=== PATIENT | female | born 1980 | race Caucasian/White ===

== ENCOUNTER → 2017-09-22 11:57 | Outpatient (CLI) | payer OTHER, SELFPAY ==
[2017-09-22 12:14] LABS: Basophils % 0.8 % (0.1-2.0); Eosinophils # 0.1 K/mm3 (0.0-0.4); Eosinophils % 2.4 % (0.1-12.0); Hematocrit 39.5 % (37.0-47.0); Hemoglobin 13.5 g/dL (12.2-16.2); Lymphocytes # 1.9 K/mm3 (0.7-4.5); Lymphocytes % 36.2 K/mm3 (10-50); Mean Corpuscular HGB Conc 34.2 g/dL (31.8-35.4); Mean Corpuscular Hemoglobin 31.7 pg (27.0-31.2); Mean Corpuscular Volume 92.7 fl (81-99); Mean Platelet Volume 7.3 fl (7.4-10.4); Monocytes # 0.3 K/mm3 (0.1-1.0); Monocytes % 6.2 % (1.7-9.3); Neutrophils # 2.8 K/mm3 (1.8-7.8); Neutrophils % 54.4 % (37.0-80.0); Platelet Count 252 K/mm3 (142-424); Red Blood Count 4.26 M/mm3 (4.20-5.40); Red Cell Distribution Width 12.2 % (11.5-17.5); White Blood Count 5.2 K/mm3 (4.8-10.8)
[2017-09-22 13:48] LABS: Free T4 (Free Thyroxine) 0.91 ng/dl (0.76-1.46)
== END ==
PROVIDERS: Visit Provider Family Medicine
DX: E03.9 Hypothyroidism, unspecified (principal); Z86.2 Personal history of diseases of the blood and blood-forming organs and certain disorders involving the immune mechanism
CPT/HCPCS: 36415; 84439; 84443; 85025

== ENCOUNTER 2017-10-02 08:57 | Emergency (ER) | payer OTHER, SELFPAY ==
[2017-10-02 09:06] VITALS: BP 132/90; PULSE 76; RESP 18; TEMP 37.1; O2SAT 100; BMI 25.8
--- NOTE | 2017-10-02 09:11 | HMH.EDUTC ---
[facility] [place] Disposition Clinical Impression: URI (upper respiratory infection) Qualifiers: URI type: unspecified URI Qualified Code(s): J06.9 - Acute upper respiratory infection, unspecified Disposition: Home, Self-Care Condition on Discharge: Good Instructions: Sore Throat, DI for Nasal Congestion Additional Instructions: How you get tonsil stones When this happens, the debris can become concentrated in white formations that occur in the pockets. Tonsil stones, or tonsilloliths, are formed when this trapped debris hardens, or calcifies. This tends to happen most often in people who have chronic inflammation in their tonsils or repeated bouts of tonsillitis Gargling vigorously with salt water can ease throat discomfort and may help dislodge tonsil stones. Salt water may also help to change your mouth chemistry. It can also help get rid of the odor tonsil stones can cause. Dissolve 1/2 teaspoon salt in 8 ounces of warm water, and gargle.Jan 30, 2017 * Monitor Temp. Tylenol and/or Ibuprofen as needed. ER if fever is no less than 101 despite alternating Tylenol and Ibuprofen * Encourage fluids, water, Gatorade, powerade, pedialyte if infant/toddler/or child * Warm salt water gargles for throat irritation *Warm fluids *Sore throat lozenges *Sleep elevated *humidifier or vaporizer Lots of rest Increase fluids, water, Gatorade, powerade *Your throat swab was sent to lab for culture. Those results area typically sent to your primary care physician. Be sure to follow up in 2-3 days if no improvement so they can review those results and treat if necessary If you dont have primary care I recommend you get one, but in the mean time you will have to return to a walk in clinic Follow up IMMEDIATELY for new or worsening of symptoms OR no noticeable improvement over the next 48-72 hours. 911 immediately for any life threatening symptoms such as chest pain or difficulty breathing Referrals: Armando Villa MD [Primary Care Provider] - Time of Disposition: 09:29 Medical Decision Making - Medical Records Medical records reviewed: Yes: I reviewed the patient's medical records. Vital Signs: 10/02/17 09:06 Temperature 98.7 F Temperature Source Temporal Artery Scan Pulse Rate [Radial] 76 Respiratory Rate 18 Blood Pressure [Right Arm] 132/90 Blood Pressure Mean [Right Arm] 104 Blood Pressure Source [Right Arm] Automatic Cuff Blood Pressure Position [Right Arm] Sitting 02 Sat by Pulse Oximetry 100 Oxygen Delivery Method Room Air - Lab Data Lab results reviewed: Yes: I reviewed the patient's lab results. Lab Results 10/02/17 09:14: Influenza Type A Ag Negative, Influenza Type B Ag Negative, Strep Scn Rapid Clinic Negative Orders (Tests/Meds): ED MEDICATIONS Generic Name Dose Route Start Last Admin Trade Name Maribell PRN Reason Stop Dose Admin Ceftriaxone Sodium 1 gm 10/02/17 09:26 Rocephin 1gm Vial IM 10/02/17 09:27 ONCE ONE Lidocaine HCl 0 ml 10/02/17 09:26 Lidocaine 1% 10ml Mdv IM 10/02/17 09:27 ONCE ONE Methylprednisolone Sodium Succinate 125 mg 10/02/17 09:26 Solu-Medrol 125mg/2ml Vial IM 10/02/17 09:27 ONCE ONE - Caden Inquiry Pt receiving controlled substance: No Caden was queried for this patient: No [facility] [place] HPI - General Stated complaint: sore throat HEENT Symptoms (Recalled from RN notes): Yes Resp Symptoms (Recalled from RN notes): No Skin Symptoms (Recalled from RN notes): No MS Symptoms (Recalled from RN notes): No Functional Status (Recalled from RN notes): na - History of Present Illness Provider Complaint: Patient state that she has been having sore throat and nasal congestion State that she looked at her throat in the mirror and noticed a small white area on her right tonsil and was afraid that she may have strep throat. 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
--- NOTE | 2017-10-02 09:14 | ED_ITS ---
[facility] [place] Disposition Clinical Impression: URI (upper respiratory infection) Qualifiers: URI type: unspecified URI Qualified Code(s): J06.9 - Acute upper respiratory infection, unspecified Disposition: Home, Self-Care Condition on Discharge: Good Instructions: Sore Throat, DI for Nasal Congestion Additional Instructions: How you get tonsil stones When this happens, the debris can become concentrated in white formations that occur in the pockets. Tonsil stones, or tonsilloliths, are formed when this trapped debris hardens, or calcifies. This tends to happen most often in people who have chronic inflammation in their tonsils or repeated bouts of tonsillitis Gargling vigorously with salt water can ease throat discomfort and may help dislodge tonsil stones. Salt water may also help to change your mouth chemistry. It can also help get rid of the odor tonsil stones can cause. Dissolve 1/2 teaspoon salt in 8 ounces of warm water, and gargle.Jan 30, 2017 * Monitor Temp. Tylenol and/or Ibuprofen as needed. ER if fever is no less than 101 despite alternating Tylenol and Ibuprofen * Encourage fluids, water, Gatorade, powerade, pedialyte if infant/toddler/or child * Warm salt water gargles for throat irritation *Warm fluids *Sore throat lozenges *Sleep elevated *humidifier or vaporizer Lots of rest Increase fluids, water, Gatorade, powerade *Your throat swab was sent to lab for culture. Those results area typically sent to your primary care physician. Be sure to follow up in 2-3 days if no improvement so they can review those results and treat if necessary If you don? t have primary care I recommend you get one, but in the mean time you will have to return to a walk in clinic Follow up IMMEDIATELY for new or worsening of symptoms OR no noticeable improvement over the next 48-72 hours. 911 immediately for any life threatening symptoms such as chest pain or difficulty breathing Referrals: Armando Villa MD [Primary Care Provider] - Time of Disposition: 09:29 Medical Decision Making - Medical Records Medical records reviewed: Yes: I reviewed the patient's medical records. Vital Signs: 10/02/17 09:06 Temperature 98.7 F Temperature Source Temporal Artery Scan Pulse Rate [Radial] 76 Respiratory Rate 18 Blood Pressure [Right Arm] 132/90 Blood Pressure Mean [Right Arm] 104 Blood Pressure Source [Right Arm] Automatic Cuff Blood Pressure Position [Right Arm] Sitting 02 Sat by Pulse Oximetry 100 Oxygen Delivery Method Room Air - Lab Data Lab results reviewed: Yes: I reviewed the patient's lab results. Lab Results 10/02/17 09:14: Influenza Type A Ag Negative, Influenza Type B Ag Negative, Strep Scn Rapid Clinic Negative Orders (Tests/Meds): ED MEDICATIONS Generic Name Dose Route Start Last Admin Trade Name Maribell PRN Reason Stop Dose Admin Ceftriaxone Sodium 1 gm 10/02/17 09:26 Rocephin 1gm Vial IM 10/02/17 09:27 ONCE ONE Lidocaine HCl 0 ml 10/02/17 09:26 Lidocaine 1% 10ml Mdv IM 10/02/17 09:27 ONCE ONE Methylprednisolone Sodium Succinate 125 mg 10/02/17 09:26 Solu-Medrol 125mg/2ml Vial IM 10/02/17 09:27 ONCE ONE - Caden Inquiry Pt receiving controlled substance: No Caden was queried for this patient: No [facility] [place] HPI - General Stated complaint: sore throat HEENT Symptoms (Recalled from RN notes): Yes Resp
[2017-10-02 09:25] LABS: UTC Influenza A Antigen Negative (Negative); UTC Influenza B Antigen Negative (Negative); UTC Strep Screen (Rapid) Negative (Negative)
[2017-10-02 09:51] VITALS: BP 132/90; PULSE 76; RESP 18; TEMP 37.1; O2SAT 100
== END 2017-10-02 09:53 | disposition home or self-care (01) ==
PROVIDERS: Emergency Provider Nurse Practitioner; PCP Family Medicine
DX: J06.9 Acute upper respiratory infection, unspecified (principal)
CPT/HCPCS: 87804; 87880; 96372; 99202; 99203

== ENCOUNTER → 2018-02-22 15:39 | Outpatient (CLI) | payer OTHER, SELFPAY | PROVIDERS: PCP Family Medicine; Visit Provider Internal Medicine Cardiovascular Disease | DX: R00.2 Palpitations (principal) | CPT/HCPCS: 93225 ==

== ENCOUNTER → 2018-03-07 14:44 | Outpatient (CLI) | payer OTHER, SELFPAY ==
[2018-03-07 16:38] LABS: Free T4 (Free Thyroxine) 1.34 ng/dl (0.76-1.46); Thyroid Stimulating Hormone 0.86 uIU/ml (0.358-3.740)
== END ==
PROVIDERS: Visit Provider Internal Medicine Cardiovascular Disease
DX: R00.2 Palpitations (principal)
CPT/HCPCS: 36415; 84439; 84443

== ENCOUNTER → 2018-03-08 07:52 | Outpatient (CLI) | payer OTHER, SELFPAY ==
--- NOTE | 2018-03-08 07:53 | CA_ITS ---
PROCEDURE: 2-D M-mode and color Doppler study INDICATIONS FOR THE TEST: Chest pain COPD Heart Murmur Tobacco Smoking PalpitationsX Fatigue Syncope Edema Hypertension Diabetes Mellitus Rheumatic Fever SOB LIANG Obesity Hyperlipidemia Family History HD Additional History PVCS PATIENT INFORMATION HEIGHT: 69 WEIGHT:177 GENDER: Female B/P:117/73 2-D/M-MODE INTERPRETATION: 2-D MEASUREMENTS OBSERVED VALUES IN CMS Right Ventricular Dimension (RVDd) 2.3 Interventricular Septum (Thickness)(IVsd) .9 Left Ventricular Internal Dimensions(LVIDd) 4.3 Left Ventricular Posterior Wall (Thickness)(LVPWd) .7 Aortic Root 3.2 Aortic Cusp Separation 2.3 Left Atrial Dimensions (LAD) 1.8 2D 1. Left atrium is normal size, left ventricle is normal size, there is no concentric left ventricular hypertrophy, visually estimated ejection fraction 55% with no obvious regional wall motion abnormality. 2. The right atrium and right ventricle are normal size and contractility. 3. The aortic, mitral and tricuspid valvular grossly normal. 4. The pulmonic valve is poorly visualized. 5. No significant pericardial effusion noted. DOPPLER INTERROGATION: Doppler interrogation of the aortic, mitral and tricuspid valvular presence of trace mitral and tricuspid regurgitation, calculated right ventricular systolic pressure is within normal range, diastolic parameters are normal. CONCLUSION: 1. Normal left ventricular size, preserved left ventricular systolic function, visually estimated ejection fraction 55% with no obvious regional wall motion abnormality, diastolic parameters are within normal range. 2. Trace mitral and tricuspid regurgitation of no hemodynamic significance 3. No significant pericardial effusion noted.
== END ==
PROVIDERS: PCP Family Medicine; Visit Provider Internal Medicine Cardiovascular Disease
DX: R00.2 Palpitations (principal)
CPT/HCPCS: 93017; 93306

== ENCOUNTER → 2018-04-06 10:49 | Outpatient (CLI) | payer OTHER, SELFPAY ==
[2018-04-06 13:16] LABS: Free T4 (Free Thyroxine) 1.19 ng/dl (0.76-1.46)
== END ==
PROVIDERS: PCP Family Medicine; Visit Provider Internal Medicine Cardiovascular Disease
DX: E03.9 Hypothyroidism, unspecified (principal); R00.2 Palpitations
CPT/HCPCS: 36415; 84439; 84443

== ENCOUNTER → 2018-04-12 07:51 | Outpatient (CLI) | payer OTHER, SELFPAY ==
--- NOTE | 2018-04-12 07:52 | NM_ITS ---
History and Indications: Chest pain, palpitations, hypothyroidism Procedure: Patient exercised on Flo protocol 10 minutes and 15 seconds, resting heart rate was 61 bpm, resting blood pressure 117/74, with exercise maximum heart rate achieved was 67 bpm which is greater than 85% of the maximum predicted heart rate and a blood pressure 151/85. Test was started due to fatigue and shortness of breath patient . Patient has good exercise capacity achieved 12.8mets of workload on treadmill, the blood pressure response to exercise was adequate. Electrocardiogram: Resting electrocardiogram showed sinus rhythm, with exercise there is less than 1.[address] segment depression. The EKG portion of the exercise Myoview is negative for ischemia. Occasional premature ventricular complex seen in the recovery period, there was no sustained arrythmia. Cardiac stress and resting SPECT images: Cardiac stress and rest SPECT images were obtained using technetium 99 Myoview 32.1 mCi at stress gated 10.7 mCi at rest gated SPECT further analysis of segmental wall motion and calculation of the ejection fraction also done. Cardiac stress and the suspect show uniform myocardial activity without any segmental perfusion abnormality, computer derived ejection fraction is 60% with no regional wall motion abnormality. Right ventricle is normal size and contractility. Conclusion: 1. The EKG portion of the exercise Myoview is negative for ischemia, patient has good exercise capacity achieved 12.8mets of workload on treadmill, the blood pressure response to exercise was adequate, test was started due to shortness of breath. 2. No scintigraphic evidence of reversible ischemia seen at this level of exercise, computer derived ejection fraction is 60% with no regional wall motion abnormality, right ventricle is normal size and contractility. 3. Normal exercise Myoview study.
--- NOTE | 2018-04-12 11:18 | HMH.ITSHM ---
synthyroid propanolol omeprazole
== END ==
PROVIDERS: PCP Family Medicine; Visit Provider Internal Medicine Cardiovascular Disease
DX: E03.9 Hypothyroidism, unspecified (principal); R00.2 Palpitations; R07.9 Chest pain, unspecified; R07.89 Other chest pain
CPT/HCPCS: 78452; 93017; A9502

== ENCOUNTER → 2018-11-16 10:46 | Outpatient (CLI) | payer OTHER, SELFPAY ==
[2018-11-16 11:48] LABS: Free Thyroxine Index 2.7 ug/dL (5.93-13.13); T4 (Thyroxine) 7.9 ug/dl (4.7-13.3); Thyroid Stimulating Hormone 1.93 uIU/ml (0.358-3.740); Triiodothryronine (T3) Uptake 34 % (31-39)
[2018-11-17 19:10] LABS: Triiodothyronine (T3) Free 2.9 pg/mL (2.0-4.4)
== END ==
PROVIDERS: Visit Provider Nurse Practitioner Obstetrics & Gynecology
DX: R53.83 Other fatigue (principal)
CPT/HCPCS: 36415; 84436; 84443; 84479; 84481

== ENCOUNTER → 2019-02-07 10:40 | Outpatient (CLI) | payer OTHER, SELFPAY ==
--- NOTE | 2019-02-07 10:43 | MM_ITS ---
MM Dig screening mamm BI w/CAD ORDERING PHYSICIAN : Carlos Choudhary MD PATIENT AGE: 38 years GENDER: Female COMPARISON: Only July 2016 bilateral mammogram available in this younger patient INDICATION: .: Routine Screening Mammogram. No hormones. No new complaints. Family history. Maternal aunt with with double mastectomy . TECHNIQUE: Standard CC and MLO images were obtained& with axillary cc views bilaterally... R2 CAD reviewed. Also spot left CC and MLO view performed FINDINGS: Fairly Dense breast bilaterally decreases the sensitivity of mammography. RIGHT BREAST:No significant new areas of concern Right breast appears stable. No dominant mass nor suspicious calcifications. Today's study to include slightly deeper portion of the right breast. No significant new findings. LEFT BREAST:. No prominent findings. . Initial MLO view note Small vague on the area of relative density noted towards inferior breast. . On subsequent MLO spot view, small skin triangle marker indicating palpable feature at 6:00 inferior to nipple noted., Just deep to the palpable skin marker there is a focus of relative increased density measuring 8mm x 9 mm area of.. This is a very light film which may exaggerate features here but warrants further evaluation. Suggest additional problem solving mammogram views followed by left breast ultrasound. These views include ... Large paddle Compression spot 90 degree of this region .... Small compression spot & Small compression spot in the CC projection. ... Subsequent left breast ultrasound. ...........IMPRESSION: ............. Breast are fairly dense bilaterally which somewhat decreases sensitivity of mammography LEFT BREAST: * Palpable area marked inferior to the left nipple (towards 6 o'clock)-, appears to correspond with area of slight increased density deep to this area. This is most notable spot MLO-but this very light film may accentuate fibroglandular elements Recommend additional additional views along with left breast ultrasound to further evaluate RIGHT BREAST.: Moderately dense right breast appears stable No new areas of concern follow-up right mammogram 1 year BI-RADS Category: 0 Need Additional Imaging Evaluation RECOMMENDED FOLLOW-UP: IMM - IMMEDIATE FOLLOW-UP RECOMMENDED *Spot views left breast followed by left breast ultrasound (A letter has been sent to the patient regarding results of the study.)
== END ==
PROVIDERS: PCP Family Medicine; Visit Provider Nurse Practitioner Obstetrics & Gynecology
DX: Z12.31 Encounter for screening mammogram for malignant neoplasm of breast (principal)
CPT/HCPCS: 77067

== ENCOUNTER → 2019-02-08 16:12 | Outpatient (CLI) | payer OTHER, SELFPAY ==
--- NOTE | 2019-02-08 | US_ITS ---
MM Dig mamm DX unilat LT CAD, US breast LT complete Ordering Physician: Carlos Choudhary MD Patient Age: 38 years Female COMPARISON: 02/07/2019 screening mammogram, & July 2016 bilateral screening mammogram INDICATION: Palpable density 6:00 left breast with vague area seen here recent screening mammography DIAGNOSTIC LEFT MAMMOGRAM SPOT VIEWS CC and MLO and 90 degrees spot views left breast performed today The spot views again show minimal density towards 6 o'clock position left breast just slightly beneath the palpable area persist. Subsequent Ultrasound reveals cyst in this area which would seem to correspond with this this modest area of increased density LEFT BREAST ULTRASOUND , Including Axillary Survey Ultrasound survey entire breast; including axillary survey/cc FINDINGS:. Bilobed cyst at 6 o'clock position of measures upto 1.3 cm length and transverse measurement with x 0.9 cm AP. This does seem to correspond with the palpable area in the vague increased density noted on mammography. This appears to be a simple clear benign cyst with thin wall but to be extra cautious, I would suggest a follow-up left mammogram with left breast ultrasound 6-9 months particular if the palpable area should persist or become more evident Survey of the axilla demonstrates small benign axillary nodes largest 8 millimeters size ...... IMPRESSION: ...... 1. The palpable area at 6:00 corresponds with a bilobed cyst which measures up to 1.3 cm on ultrasound. Benign-appearing cyst which can be followed But a be cautious and further confirm stability, suggest follow-up left mammogram & left breast ultrasound 6-9 months BI-RADS Category: 3 Probably Benign Finding Short Term Follow-up RECOMMENDED FOLLOW-UP: 6M 6 MONTH FOLLOW-UP A letter has been sent to the patient regarding results of the study.)
== END ==
PROVIDERS: PCP Family Medicine; Visit Provider Nurse Practitioner Obstetrics & Gynecology
DX: R92.8 Other abnormal and inconclusive findings on diagnostic imaging of breast (principal)
CPT/HCPCS: 76641; 77065

== ENCOUNTER → 2019-08-13 13:55 | Outpatient (CLI) | payer OTHER, SELFPAY ==
[2019-08-13 16:17] LABS: Free Thyroxine Index 3.1 ug/dL (5.93-13.13); Thyroid Stimulating Hormone 0.56 uIU/ml (0.358-3.740); Triiodothryronine (T3) Uptake 34 % (31-39)
[2019-08-15 13:05] LABS: FSH 4.8; LH 4.4; Triiodothyronine (T3) Free 2.9
== END ==
PROVIDERS: Visit Provider Nurse Practitioner Obstetrics & Gynecology
DX: E06.3 Autoimmune thyroiditis (principal); R53.82 Chronic fatigue, unspecified
CPT/HCPCS: 36415; 83001; 83002; 84436; 84443; 84479; 84481

== ENCOUNTER → 2019-11-08 10:28 | Outpatient (CLI) | payer OTHER, SELFPAY ==
[2019-11-08 12:25] LABS: Iron 105 ug/dL (37-170)
[2019-11-08 12:43] LABS: Free T4 (Free Thyroxine) 0.67 ng/dl (0.78-2.19)
[2019-11-08 12:57] LABS: Thyroid Stimulating Hormone 2.58 uIU/mL (0.465-4.68)
[2019-11-08 13:00] LABS: Ferritin 58.5 ng/ml (6.24-137)
[2019-11-09 08:18] LABS: DHEA-Sulfate 95.3 ug/dL (57.3-279.2); Thyroid Peroxidase Antibodies 46 IU/mL (0-34); Triiodothyronine (T3) Free 4.7 pg/mL (2.0-4.4); Vitamin B12 542 pg/mL (232-1245); Vitamin D 25 Hydroxy 36.9 ng/mL (30.0-100.0)
[2019-11-10 16:01] LABS: Testosterone, Total, LC/MS 16.6 ng/dL (10.0-55.0)
[2019-11-10 16:19] LABS: Testosterone,Free 1.3 pg/mL (0.0-4.2)
[2019-11-11 14:16] LABS: Thyroglobulin Level <1.0 IU/mL (0.0-0.9)
[2019-11-11 14:18] LABS: Triiodothyronine (T3) Reverse 11.4 ng/dL (9.2-24.1)
== END ==
PROVIDERS: Visit Provider Nurse Practitioner Adult Health
DX: R53.83 Other fatigue (principal); R68.82 Decreased libido; E03.9 Hypothyroidism, unspecified; E34.9 Endocrine disorder, unspecified; N95.1 Menopausal and female climacteric states; R00.2 Palpitations; E06.9 Thyroiditis, unspecified; L65.9 Nonscarring hair loss, unspecified
CPT/HCPCS: 36415; 82607; 82626; 82652; 82728; 83540; 84402; 84403; 84439; 84443; 84481; 84482; 86376; 86800

== ENCOUNTER 2020-01-28 14:30 | Emergency (ER) | payer OTHER, SELFPAY ==
[2020-01-28 14:31] VITALS: BP 123/69; PULSE 79; RESP 16; TEMP 36.7; O2SAT 99; BMI 27.8
[2020-01-28 14:42] VITALS: BP 123/69; PULSE 79; RESP 16; TEMP 36.7; O2SAT 99; BMI 28.0
--- NOTE | 2020-01-28 14:52 | HMH.EDUTC ---
[facility] [place] Clinical Impression: Scalp laceration Qualifiers: Encounter type: initial encounter Qualified Code(s): S01.01XA - Laceration without foreign body of scalp, initial encounter Disposition: Home, Self-Care Condition on Discharge: Good Instructions: DI for Laceration Repair -- [place], DI for Laceration Repair of the Scalp Additional Instructions: Keep the wound clean. Watch the for signs of infection, such as redness, swelling, drainage, fever. etc. Take tylenol or ibuprofen for pain. Follow up with your regular doctor. Return in 5 days to have the elissa removed. GO TO THE ER FOR ANY WORSENING SYMPTOMS OR CONCERNS. Referrals: Avni Fraser MD [Primary Care Provider] - Time of Disposition: 15:11 Medical Decision Making - Medical Records Medical records reviewed: No: I reviewed the patient's medical records. - Caden Inquiry Pt receiving controlled substance: No Vital Signs: 01/28/20 14:31 01/28/20 14:42 01/28/20 15:25 Temperature 98.1 F 98.1 F 98.1 F Temperature Source Oral Oral Pulse Rate 79 Pulse Rate [Right Radial] 79 79 Respiratory Rate 16 16 16 Blood Pressure 123/69 Blood Pressure [Right Arm] 123/69 123/69 Blood Pressure Mean [Right Arm] 87 87 Blood Pressure Source [Right Arm] Automatic Cuff Automatic Cuff Blood Pressure Position [Right Arm] Sitting Sitting 02 Sat by Pulse Oximetry 99 99 Oxygen Delivery Method Room Air Room Air Orders (Tests/Meds): ED MEDICATIONS Discontinued Medications Generic Name Dose Route Start Last Admin Trade Name Freq PRN Reason Stop Dose Admin Tetanus/Reduced Diphtheria/Acell Pertussis 0.5 ml 01/28/20 14:47 01/28/20 14:55 Adacel Tdap 0.5ml Syringe IM 01/28/20 14:48 0.5 ml .ONCE ONE Administration [facility] [place] - General Stated complaint: WC [id number] lac to head Time Seen by Provider: 01/28/20 14:52 Mode of Arrival: Ambulatory Source of Information: Patient Limitations: No Limitations Description of Symptoms (Recalled from Triage Doc. 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 She recieved a laceration to her scalp. Her tetanus immunization is not up to date. She denies any loss of conciousness or dizziness or other discomfort. - Related Data Home Medications Medication Instructions Recorded Confirmed Thyroid,Pork [Thyroid] 30 mg PO BID 09/30/19 01/28/20 Allergies Allergy/AdvReac Type Severity Reaction Status Date / Time No Known Allergies Allergy Verified 07/16/19 16:08 - Worker's Comp Is this a Worker's Comp case?: No [facility] History - Hepatitis A Screen Drug use history?: No High risk sexual behaviors?: No History of sexually transmitted infection?: No Currently employed?: No Childcare worker?: No Do you have indoor plumbing?: Yes Do you have electricity?: Yes Attestation statement:: This patient has been screened for Hepatitis A risk factors. I have reviewed the patient's past medical history: Yes Medical History: Reports:: Depression, Palpitations Denies:: Anxiety, Cancer, Diabetes Mellitus Type 1, Diabetes Mellitus Type 2, Hyperlipidemia, Hypertension, MRSA, Seizures Other Medical History: Reports: Hypothyroidism Other Surgeries: Yes: Diagnostic Lap, Thyroidectomy Amputation: No Fractures: Yes Comment: ablation - Social History Smoking Status: Never smoker Alcohol Intake: never Alcohol Intake Frequency:: other Substance Use Type: denies use Occupational Status: e
[2020-01-28 15:25] VITALS: BP 123/69; PULSE 79; RESP 16; TEMP 36.7; O2SAT 99
== END 2020-01-28 15:27 | disposition home or self-care (01) ==
PROVIDERS: Emergency Provider Nurse Practitioner Family; PCP Family Medicine
DX: S01.01XA Laceration without foreign body of scalp, initial encounter (principal); W22.09XA Striking against other stationary object, initial encounter; Y92.69 Other specified industrial and construction area as the place of occurrence of the external cause; Y99.0 Civilian activity done for income or pay; Z23 Encounter for immunization
CPT/HCPCS: 12001; 90471; 90715; 99201

== ENCOUNTER → 2020-03-19 13:54 | Outpatient (CLI) | payer OTHER, SELFPAY ==
--- NOTE | 2020-03-19 14:01 | MM_ITS ---
PROCEDURE: MM DIG SCREENING MAMM BI W/CAD Digital Breast Tomosynthesis Included CLINICAL INDICATION: routine screening mammogram There is a history of breast cancer patient's maternal aunt diagnosed after menopause. COMPARISON: [facility] DIG MAMM-SCREEN PIERRE W/CAD from 08/26/2016 MG DIG MAMM-SCREEN PIERRE from 02/07/2019 MG DIG MAMM-DX UNI-LT from 02/08/2019 TECHNIQUE: Standard CC and MLO images and 3D Tomosynthesis was obtained. R2 CAD reviewed. FINDINGS: Prominent diffuse somewhat heterogenic fibroglandular densities are seen in the central portions of both breasts and the findings of bilateral and symmetrical. There is a mole marker left breast. Are most helpful in excluding any suspicious lesion in either breast. There are no suspicious microcalcifications. IMPRESSION: Diffusely dense parenchymal pattern with no suspicious lesions seen BI-RAD Category: 2 Benign Finding(s) FOLLOW-UP: 1YR 1 Year Follow-up (A letter has been sent to the patient regarding results of the study.) Dictated by: Dr. Liborio Pelletier MD 03/20/2020 11:59 Dr. Liborio Pelletier MD in [place] 03/20/2020 11:59
== END ==
PROVIDERS: PCP Family Medicine; Visit Provider Nurse Practitioner Obstetrics & Gynecology
DX: Z12.31 Encounter for screening mammogram for malignant neoplasm of breast (principal)
CPT/HCPCS: 77063; 77067

== ENCOUNTER → 2020-09-03 11:05 | Outpatient (CLI) | payer OTHER, SELFPAY ==
[2020-09-03 11:34] LABS: Basophils # 0.1 K/mm3 (0-0.2); Basophils % 0.8 % (0.1-2.0); Eosinophils # 0.1 K/mm3 (0.0-0.4); Eosinophils % 1.2 % (0.1-12.0); Hematocrit 38.8 % (37.0-47.0); Hemoglobin 12.6 g/dL (12.2-16.2); Lymphocytes % 32.9 % (10-50); Mean Corpuscular HGB Conc 32.5 g/dL (31.8-35.4); Mean Corpuscular Hemoglobin 29.5 pg (27.0-31.2); Mean Corpuscular Volume 90.9 fl (81-99); Mean Platelet Volume 7.1 fl (7.4-10.4); Monocytes # 0.4 K/mm3 (0.1-1.0); Monocytes % 6.3 % (1.7-9.3); Neutrophils # 3.5 K/mm3 (1.8-7.8); Neutrophils % 58.8 % (37.0-80.0); Platelet Count 289 K/mm3 (142-424); Red Blood Count 4.27 M/mm3 (4.20-5.40); Red Cell Distribution Width 12.5 % (11.5-17.5)
[2020-09-03 12:02] LABS: Alanine Aminotransferase 21 U/L (12-78); Albumin Level 4.4 g/dl (3.5-5.0); Albumin/Globulin Ratio 1.6 (1.1-1.8); Alkaline Phosphatase 56 U/L (38-126); Anion Gap 11.3 mEq/L (5-15); Aspartate Amino Transferase 27 U/L (14-36); Bilirubin,Total 1.1 mg/dl (0.2-1.3); Blood Urea Nitrogen 12 mg/dl (7-17); Calcium 9.2 mg/dl (8.4-10.2); Carbon Dioxide 25 mmol/L (22.0-30.0); Chloride 105 mmol/L (98-107); Estimated Glomerular Filt Rate 79 ml/min (>60); GFR (African American) 96 ML/MIN (>60); Globulin 2.8 g/dL (1.3-3.2); Glucose 105 mg/dl (74-100); Potassium 4.3 mmoL/L (3.5-5.1); Sodium 137 mmol/L (136-145); Total Protein,Serum 7.2 g/dl (6.3-8.2)
[2020-09-03 12:21] LABS: Free T4 (Free Thyroxine) 0.71 ng/dl (0.78-2.19)
[2020-09-03 12:35] LABS: Thyroid Stimulating Hormone 0.36 uIU/mL (0.465-4.68)
[2020-09-04 14:47] LABS: Thyroid Peroxidase Antibodies 37 IU/mL (0-34)
[2020-09-04 17:56] LABS: Triiodothyronine (T3) Free 4.7 pg/mL (2.0-4.4)
[2020-09-08 19:34] LABS: Thyroglobulin Level <1.0 IU/mL (0.0-0.9)
== END ==
PROVIDERS: Visit Provider Nurse Practitioner Adult Health
DX: E03.9 Hypothyroidism, unspecified (principal); E06.9 Thyroiditis, unspecified
CPT/HCPCS: 36415; 80053; 84439; 84443; 84481; 85025; 86376; 86800

== ENCOUNTER → 2020-10-13 08:50 | Outpatient (POV) | payer OTHER, SELFPAY | PROVIDERS: Visit Provider Otolaryngology | DX: Z00.00 Encounter for general adult medical examination without abnormal findings (principal) ==

== ENCOUNTER → 2020-10-20 16:10 | Outpatient (CLI) | payer OTHER, SELFPAY ==
--- NOTE | 2020-10-20 16:13 | MR_ITS ---
PROCEDURE: MR HEAD/BRAIN WO/W CON CLINICAL INDICATION: BILATERAL TINNITUS, TMJ SYNDROME Bilateral ear tinnitus x1yr. Off balance and headaches on and off [id number]. COMPARISON: MR [facility] MRI-BRAIN W/WO from 07/26/2013 TECHNIQUE: Routine multiplanar multi echo sequences are performed without and with gadolinium enhancement. Thin section axial and coronal pre and post enhanced T1 weighted images are also obtained. A FINDINGS: No midline shift, mass effect, intracranial hemorrhage, hydrocephalus evident. No evidence of acute infarction. No enhancing lesions are evident. There is nonspecific increased T2 signal in the deep white matter of the right frontal parietal junction. This may have been present dating back to 07/26/2013 but less apparent at that time possibly due to the different scanning parameters on a different unit and different magnetic field strength. This area does not demonstrate any restricted diffusion and does not demonstrate contrast enhancement. There are 2 nonspecific T2 white matter hyperintensities in the right frontal lobe more lateral and anterior. No other white matter abnormalities apparent. No enhancing lesions are evident. Thin section images are obtained of the CP angles. The CP angles have an unremarkable appearance. No enhancing lesions are evident. No mastoid effusion or sinus air-fluid level. There is mild prominence of the CSF in the subarachnoid space anterior to the left aspect of the cerebellum measuring approximately 1.3 by 0.9 cm suggesting a small right joint cyst not significantly changed. On the sagittal T2 weighted images there is an area of decreased signal within the posterior aspect of the pituitary measuring 4 mm. While this could be due to partial averaging from the adjacent carotid, 1 cannot exclude the possibility of a small pituitary nodule. Repeat exam with pituitary protocol may provide further evaluation. No mastoid effusion or sinus air-fluid level. IMPRESSION: 1. Nonspecific small area of T2 white matter hyperintensity in the right frontal parietal junction which which is probably not significantly changed considering the difference in scanning parameters. Small area of gliotic change is a consideration. 2. No CP angle mass. 3. Small left arachnoid cyst along the cerebellum unchanged. 4. Possible small pituitary nodule versus artifact from the overlying carotid artery. Dedicated pituitary MRI may provide further evaluation if clinically desired. Dictated by: Kevin Villanueva MD 10/21/2020 12:48 Kevin Villanueva MD in [place] 10/21/2020 12:48
== END ==
PROVIDERS: PCP Family Medicine; Visit Provider Otolaryngology
DX: H93.13 Tinnitus, bilateral (principal); M26.609 Unspecified temporomandibular joint disorder, unspecified side
CPT/HCPCS: 70553; A9576

== ENCOUNTER → 2020-12-29 08:58 | Outpatient (POV) | payer OTHER, SELFPAY | PROVIDERS: Visit Provider Otolaryngology | DX: Z00.00 Encounter for general adult medical examination without abnormal findings (principal) ==

== ENCOUNTER → 2021-04-02 15:28 | Outpatient (CLI) | payer OTHER, SELFPAY ==
[2021-04-02 16:09] LABS: Basophils # 0.1 K/mm3 (0-0.2); Basophils % 1.2 % (0.1-2.0); Eosinophils # 0.1 K/mm3 (0.0-0.4); Eosinophils % 1.4 % (0.1-12.0); Hematocrit 38.3 % (37.0-47.0); Hemoglobin 13.2 g/dL (12.2-16.2); Lymphocytes # 2.2 K/mm3 (0.7-4.5); Lymphocytes % 34.2 % (10-50); Mean Corpuscular HGB Conc 34.4 g/dL (31.8-35.4); Mean Corpuscular Hemoglobin 32.1 pg (27.0-31.2); Mean Corpuscular Volume 93.4 fl (81-99); Mean Platelet Volume 8.4 fl (7.4-10.4); Monocytes # 0.3 K/mm3 (0.1-1.0); Monocytes % 5.5 % (1.7-9.3); Neutrophils # 3.6 K/mm3 (1.8-7.8); Neutrophils % 57.7 % (37.0-80.0); Platelet Count 335 K/mm3 (142-424); Red Cell Distribution Width 12.9 % (11.5-17.5); White Blood Count 6.3 K/mm3 (4.8-10.8)
[2021-04-02 17:26] LABS: Chloride 104 mmol/L (98-107); Sodium 139 mmol/L (136-145)
[2021-04-02 17:27] LABS: Potassium 4.2 mmoL/L (3.5-5.1)
[2021-04-02 17:29] LABS: Alanine Aminotransferase 18 U/L (12-78); Albumin Level 4.1 g/dl (3.5-5.0); Albumin/Globulin Ratio 1.5 (1.1-1.8); Alkaline Phosphatase 63 U/L (38-126); Anion Gap 16.2 mEq/L (5-15); Aspartate Amino Transferase 25 U/L (14-36); Blood Urea Nitrogen 14 mg/dl (7-17); Calcium 8.7 mg/dl (8.4-10.2); Carbon Dioxide 23 mmol/L (22.0-30.0); Estimated Glomerular Filt Rate 69 ml/min (>60); GFR (African American) 84 ML/MIN (>60); Globulin 2.7 g/dL (1.3-3.2); Glucose 114 mg/dl (74-100); Iron 61 ug/dL (37-170); Total Protein,Serum 6.8 g/dl (6.3-8.2)
[2021-04-02 18:05] LABS: Ferritin 47.7 ng/ml (6.24-137)
[2021-04-04 08:52] LABS: Thyroid Peroxidase Antibodies 54 IU/mL (0-34); Triiodothyronine (T3) Free 3.4 pg/mL (2.0-4.4)
== END ==
PROVIDERS: Visit Provider Nurse Practitioner Adult Health
DX: E03.9 Hypothyroidism, unspecified (principal); R53.83 Other fatigue; Z13.29 Encounter for screening for other suspected endocrine disorder
CPT/HCPCS: 36415; 80053; 82728; 83540; 84439; 84443; 84481; 85025; 86376

== ENCOUNTER → 2021-12-28 16:16 | Outpatient (CLI) | payer OTHER, SELFPAY ==
--- NOTE | 2021-12-28 16:19 | MR_ITS ---
PROCEDURE INFORMATION: Exam: MR Head Without and With Contrast Exam date and time: 12/28/2021 4:35 PM Age: 41 years old Clinical indication: Followup pituitary nodule. TECHNIQUE: Imaging protocol: MR of the head without and with intravenous contrast. Contrast material: PROHANCE; Contrast volume: 18 ml; Contrast route: IV; COMPARISON: MR HEAD/BRAIN WO/W CON 10/20/2020 4:21 PM FINDINGS: Brain: Normal. No acute infarct. No hemorrhage. No significant white matter disease. No edema. Cerebral ventricles: Normal. No ventriculomegaly. Pituitary gland and sella: There is a 6 mm nodule within the posterior pituitary gland. This has been reported previously. The appearance is similar to prior study. Bones/joints: There is a stable focus of T2 FLAIR high signal within the anterior right centrum semiovale. The appearance is similar to prior study. This was reported previously. Paranasal sinuses: Normal as visualized. No acute sinusitis. Mastoid air cells: Normal as visualized. No mastoid effusion. Orbital cavities: Unremarkable. Soft tissues: Unremarkable. IMPRESSION: 1. There is a 6 mm nodule within the posterior pituitary gland. This has been reported previously. The appearance is similar to prior study. Please correlate clinically. 2. There is a stable focus of T2 FLAIR high signal within the anterior right centrum semiovale. The appearance is similar to prior study. This was reported previously.
== END ==
PROVIDERS: PCP Family Medicine; Visit Provider Otolaryngology
DX: G93.0 Cerebral cysts (principal)
CPT/HCPCS: 70553; A9576

== ENCOUNTER → 2022-02-07 10:53 | Outpatient (CLI) | payer OTHER, SELFPAY ==
--- NOTE | 2022-02-07 10:55 | US_ITS ---
FINAL REPORT CLINICAL HISTORY: Pelvic Pain; history of ablation FINDINGS: Transvaginal sonographic images of the pelvis were obtained. The uterus is retroverted and measures 8.0 x 5.8 x 6.7 cm. The endometrium measures 7 mm, which is within normal limits. There is a 1.4 x 1.0 cm cystic focus adjacent to the endometrium which is possibly related to prior ablation. The right ovary measures 3.1 cm in length and left ovary measures 2.9 cm in length. Normal blood flow seen to the ovaries. Benign-appearing cysts or follicles are present bilaterally. There is no evidence of free fluid. IMPRESSION: 1.4 x 1.0 cm cystic focus adjacent to the endometrium. Recommend follow-up in 6 weeks or 10 weeks time to evaluate for involution. Reviewed, Interpreted and Dictated by Jos Quinn MD Transcribed by Vika Lyon Authenticated and [facility]
== END ==
PROVIDERS: PCP Family Medicine; Visit Provider Obstetrics & Gynecology
DX: R10.2 Pelvic and perineal pain (principal)
CPT/HCPCS: 76830

== ENCOUNTER → 2022-02-22 09:09 | Outpatient (POV) | payer OTHER, SELFPAY | PROVIDERS: Visit Provider Dermatology | DX: Z00.00 Encounter for general adult medical examination without abnormal findings (principal) ==

== ENCOUNTER → 2022-03-31 09:23 | Outpatient (CLI) | payer OTHER, SELFPAY ==
--- NOTE | 2022-03-31 09:25 | MM_ITS ---
PROCEDURE INFORMATION: Exam: MG Bilateral Screening 3D Mammography Exam date and time: 03/31/2022 9:19 AM Age: 41 years old Clinical indication: Screening examination TECHNIQUE: Imaging protocol: Bilateral Screening tomosynthesis and 2D mammography including computer-aided detection (CAD) when performed. COMPARISON: 1. MG MM DIG SCREENING MAMM BI W/CAD 03/19/2020 2:00 PM 2. MG DIG MAMM-DX UNI-LT 02/08/2019 4:20 PM FINDINGS: MAMMOGRAPHY: Breast composition: The breasts are heterogeneously dense, which may obscure small masses. Mass: None. Architectural distortion: None. Calcifications: No suspicious calcifications. Asymmetric density: None. Skin thickening: None. Axillary adenopathy: None. IMPRESSION: No mammographic evidence of malignancy. Annual screening is recommended unless otherwise clinically indicated. ASSESSMENT: BI-RADS Category 1: Negative
== END ==
PROVIDERS: PCP Family Medicine; Visit Provider Obstetrics & Gynecology
DX: Z12.31 Encounter for screening mammogram for malignant neoplasm of breast (principal)
CPT/HCPCS: 77063; 77067

== ENCOUNTER 2022-04-13 09:27 | Emergency (ER) | payer OTHER, SELFPAY ==
[2022-04-13 09:34] VITALS: BP 144/87; PULSE 101; RESP 16; TEMP 36.7; O2SAT 98; BMI 29.6
--- NOTE | 2022-04-13 09:39 | EXP.UTC ---
Discharge Plan Disposition Patient Disposition: Home, Self-Care Condition: Good Prescriptions Prescriptions: New amoxicillin [amoxicillin] 500 mg tablet 500 mg PO TID 10 Days Qty: 30 0RF benzonatate [benzonatate] 100 mg capsule 100 mg PO TIDP PRN (Reason: Cough) Qty: 30 0RF ondansetron 4 mg Tablet,Disintegrating 4 mg PO Q8H PRN (Reason: Nausea) Qty: 20 0RF No Action fluconazole 150 mg tablet 150 mg PO Q3D 0 Days Qty: 2 0RF thyroid (pork) 30 MG tablet 30 mg PO BID Referrals Follow up/Referrals: Avni Fraser MD [Primary Care Provider] - See instructions Activity Restrictions/Add. Instructions Additional Instructions/Restrictions: Drink plenty of fluids. Take tylenol or ibuprofen for pain or fever. Take the medications as directed. Follow up with your regular doctor. GO TO THE ER FOR ANY WORSENING SYMPTOMS Clinical Impressions Clinical Impression: Strep throat Stand Alone Forms Stand Alone Forms: Work/School Release Instructions Patient Instructions: Strep Throat, DI for Strep Throat Discharge ED Provider: Liam Castellon [facility] General Stated complaint: sore throat Time Seen by Provider: 04/13/22 09:50 History of Present Illness Provider Complaint: She states that for the past 2 days she has had sore throat, chills, body aches and low grade fever. Related Data Home Medications Medication Instructions Recorded Confirmed thyroid (pork) 30 mg tablet 30 mg PO BID THYROID 09/30/19 01/13/22 Previous Rx's Medication Instructions Recorded fluconazole 150 mg tablet 150 mg PO Q3D 2 doses #2 tabs 03/01/22 amoxicillin 500 mg tablet 500 mg PO TID 10 days #30 tabs 04/13/22 benzonatate 100 mg capsule 100 mg PO TIDP PRN Cough #30 caps 04/13/22 ondansetron 4 mg disintegrating 4 mg PO Q8H PRN Nausea #20 tabs 04/13/22 tablet Allergies Allergy/AdvReac Type Severity Reaction Status Date / Time No Known Allergies Allergy Verified 04/13/22 09:40 [facility] Social History Smoking Status: Never smoker alcohol intake: never substance use type: denies use current occupational status: employed Travel in the last 8 weeks: None ROS Obtained: Yes All systems reviewed & no additional complaints except as documented Constitutional Constitutional: Reports system reviewed and no additional complaints, except as documented, Denies chills and Denies fever(s) Eyes Eyes: Denies eye discharge ENT Ears, Nose, Mouth, and Throat: Denies dysphagia, Denies sore throat and Denies throat swelling Cardiovascular Cardiovascular: Denies chest pain and Denies dyspnea Respiratory Respiratory: Denies chest congestion, Denies cough and Denies dyspnea Gastrointestinal Gastrointestingal: Denies abdominal pain, constipation, diarrhea, dysphagia, nausea or vomiting Musculoskeletal Musculoskeletal: Denies arthralgias Integumentary/Breasts Skin/Breast: Denies rash Neurologic Neurologic: Denies paresthesias Allergic/Immunologic Allergic/Immunologic: Denies throat swelling Physical Exam General General appearance: alert and in no apparent distress Head Head exam: atraumatic, normocephalic and normal inspection Eye Eye exam: Present normal appearance, PERRL and EOMI ENT ENT exam: Present mucous membranes moist and normal external ear exam Expanded ENT Exam TM/Canal exam: Bilateral TM: erythema and bulging Nose exam: Absent sinus tenderness Mouth exam: Present normal external inspection; Absent drooling Teeth exam: Present normal inspection Throat exam: Present tonsillar erythema, tonsillomegaly and tonsillar exudate Neck Neck exam: Present normal inspection, full ROM and trachea midline; Absent tenderness, meningismus or lymphadenopathy Chest Chest inspection: Present normal inspection and symmetric chest wall rise; Absent tenderness Respiratory Respiratory exam: Present normal lung sounds bilaterally; Absent respirator
[2022-04-13 09:45] LABS: UTC Strep Screen (Rapid) Negative (Negative)
[2022-04-13 10:04] VITALS: BP 144/87; PULSE 101; RESP 16; TEMP 36.7
== END 2022-04-13 10:05 | disposition home or self-care (01) ==
PROVIDERS: Emergency Provider Nurse Practitioner Family; PCP Family Medicine
DX: J02.0 Streptococcal pharyngitis (principal)
CPT/HCPCS: 87880; 99212; G0463

== ENCOUNTER → 2022-09-09 08:10 | Outpatient (CLI) | payer OTHER, SELFPAY ==
[2022-09-09 09:43] LABS: Basophils # 0.1 K/mm3 (0-0.2); Basophils % 0.9 % (0.1-2.0); Eosinophils # 0.1 K/mm3 (0.0-0.4); Eosinophils % 1.7 % (0.1-12.0); Hematocrit 38.6 % (37.0-47.0); Hemoglobin 12.8 g/dL (12.2-16.2); Lymphocytes # 1.5 K/mm3 (0.7-4.5); Lymphocytes % 30.2 % (10-50); Mean Corpuscular HGB Conc 33.3 g/dL (31.8-35.4); Mean Corpuscular Hemoglobin 30.9 pg (27.0-31.2); Mean Corpuscular Volume 92.8 fl (81-99); Mean Platelet Volume 7.9 fl (7.4-10.4); Monocytes # 0.3 K/mm3 (0.1-1.0); Monocytes % 5.5 % (1.7-9.3); Neutrophils # 3.1 K/mm3 (1.8-7.8); Neutrophils % 61.6 % (37.0-80.0); Platelet Count 317 K/mm3 (142-424); Red Blood Count 4.16 M/mm3 (4.20-5.40); Red Cell Distribution Width 12.8 % (11.5-17.5); White Blood Count 5.1 K/mm3 (4.8-10.8)
[2022-09-09 10:17] LABS: Alanine Aminotransferase 22 U/L (12-78); Albumin Level 4.2 g/dl (3.5-5.0); Albumin/Globulin Ratio 1.8 (1.1-1.8); Alkaline Phosphatase 58 U/L (38-126); Anion Gap 9.4 mEq/L (5-15); Aspartate Amino Transferase 25 U/L (14-36); Bilirubin,Total 0.9 mg/dl (0.2-1.3); Blood Urea Nitrogen 10 mg/dl (7-17); Calcium 8.7 mg/dl (8.4-10.2); Carbon Dioxide 26 mmol/L (22.0-30.0); Chloride 107 mmol/L (98-107); Chol/HDL Ratio 3.5 (1-3.5); Cholesterol 172 mg/dl (140-200); Estimated Glomerular Filt Rate 92 ml/min (>60); GFR (African American) 111 ML/MIN (>60); Globulin 2.3 g/dL (1.3-3.2); Glucose 90 mg/dl (74-100); HDL Cholesterol 49 mg/dl (40-60); Potassium 4.4 mmoL/L (3.5-5.1); Sodium 138 mmol/L (136-145); Total Protein,Serum 6.5 g/dl (6.3-8.2); Triglycerides 51 mg/dl (30-150); VLDL Cholesterol 10 mg/dL (0-40)
[2022-09-09 10:28] LABS: Direct LDL Cholesterol 106.87 mg/dL (100-129)
[2022-09-09 10:35] LABS: Free T4 (Free Thyroxine) 0.64 ng/dl (0.78-2.19)
[2022-09-09 10:36] LABS: 25-OH Vitamin D, Total 41.5 ng/mL (30-100)
[2022-09-09 10:48] LABS: Thyroid Stimulating Hormone 1.02 uIU/mL (0.465-4.68)
[2022-09-09 11:07] LABS: Vitamin B12 386 pg/mL (239-931)
[2022-09-10 08:20] LABS: Thyroid Peroxidase Antibodies 56 IU/mL (0-34); Triiodothyronine (T3) Free 3.4 pg/mL (2.0-4.4)
[2022-09-16 04:27] LABS: Testosterone, Total, LC/MS 25.8 ng/dL (.); Testosterone,Free 1.7 pg/mL (0.0-4.2)
== END ==
PROVIDERS: PCP Family Medicine; Visit Provider Nurse Practitioner Adult Health
DX: R53.83 Other fatigue (principal); E34.9 Endocrine disorder, unspecified; E55.9 Vitamin D deficiency, unspecified; E53.9 Vitamin B deficiency, unspecified; Z79.890 Hormone replacement therapy
CPT/HCPCS: 36415; 80053; 80061; 82306; 82607; 82670; 83001; 83036; 84402; 84403; 84439; 84443; 84481; 85025; 86376

== ENCOUNTER → 2022-10-17 13:17 | Outpatient (CLI) | payer OTHER, SELFPAY ==
[2022-10-17 14:49] LABS: Free Thyroxine Index 1.6 ug/dL (5.93-13.13); Triiodothryronine (T3) Uptake 27 % (23.5-40.5)
[2022-10-17 15:03] LABS: Thyroid Stimulating Hormone 1.17 uIU/mL (0.465-4.68)
[2022-10-19 12:06] LABS: FSH 3.2 mIU/mL (.); LH 7.3 mIU/mL (.); Prolactin 17.1 ng/mL (4.8-23.3)
[2022-10-21 08:56] LABS: IGF-BP3 3710 ug/L (2409-5610)
== END ==
PROVIDERS: PCP Family Medicine; Visit Provider Family Medicine
DX: E23.6 Other disorders of pituitary gland (principal); E03.9 Hypothyroidism, unspecified
CPT/HCPCS: 36415; 82533; 83001; 83002; 83520; 84146; 84436; 84443; 84479

== ENCOUNTER → 2022-10-21 08:32 | Outpatient (CLI) | payer OTHER, SELFPAY ==
[2022-10-22 14:33] LABS: Adrenocorticotropic Hormone 15.4 pg/mL (7.2-63.3)
== END ==
PROVIDERS: PCP Family Medicine; Visit Provider Family Medicine
DX: E23.6 Other disorders of pituitary gland (principal)
CPT/HCPCS: 82024

== ENCOUNTER → 2022-12-23 08:34 | Outpatient (CLI) | payer OTHER, SELFPAY ==
--- NOTE | 2022-12-23 08:35 | MR_ITS ---
FINAL REPORT CLINICAL HISTORY: dizziness. OCCULAR HEADACHE. KNOWN PITUITARY GLAND TUMOR. COMPARISON: December 28, 2021 MRI FINDINGS: Multiplanar MR imaging of the brain was performed without and with contrast with attention to the pituitary. There are mild chronic ischemic/gliotic changes, stable. No abnormal extra-axial fluid collection is seen. The ventricular size is within normal limits. There is no evidence of shift of the midline structures. The posterior fossa and brainstem have an unremarkable appearance. No area of abnormal restricted diffusion is identified. No abnormal contrast enhancement is seen. Normal major vessel vascular flow voids are noted. There has been significant interval enlargement of the pituitary gland since the prior exam. The pituitary gland now measures 12 mm in height and was previously 6 mm. A heterogeneous mass is seen involving the pituitary without significant contrast enhancement. The mass measures 17 x 10 mm on the coronal images. Small foci of increased T1 signal are seen within the mass suggestive of foci of hemorrhage. The mass extends into the suprasellar region. The pituitary stalk is in the midline. The mass extends to near the optic chiasm but does not appear to contact it. IMPRESSION: Significant interval enlargement of the pituitary mass as described. Small foci of increased T1 signal within it likely represent interval hemorrhage. Authenticated and [facility]
== END ==
PROVIDERS: PCP Family Medicine; Visit Provider Family Medicine
DX: R42 Dizziness and giddiness (principal); H93.12 Tinnitus, left ear
CPT/HCPCS: 70553; A9576

== ENCOUNTER → 2022-12-28 09:53 | Outpatient (CLI) | payer OTHER, SELFPAY ==
[2022-12-28 11:25] LABS: Free T4 (Free Thyroxine) 0.93 ng/dl (0.78-2.19)
== END ==
PROVIDERS: PCP Family Medicine; Visit Provider Internal Medicine Endocrinology, Diabetes & Metabolism
DX: E03.9 Hypothyroidism, unspecified (principal)
CPT/HCPCS: 36415; 84439

== ENCOUNTER → 2023-01-12 11:41 | Outpatient (CLI) | payer OTHER, SELFPAY ==
--- NOTE | 2023-01-12 11:44 | MR_ITS ---
FINAL REPORT CLINICAL HISTORY: PITUITARY APOPLEXY. COMPARISON: 12/23/2022 FINDINGS: Multiplanar MR imaging of the brain was performed without and with contrast with attention to the pituitary. There are mild chronic ischemic/gliotic changes. There is no evidence of intracranial hemorrhage or mass. No abnormal extra-axial fluid collection is seen. The ventricular size is within normal limits. There is no evidence of shift of the midline structures. The posterior fossa and brainstem have an unremarkable appearance. No area of abnormal restricted diffusion is identified. No abnormal contrast enhancement is seen. Normal major vessel vascular flow voids are noted. Again identified is enlargement of the pituitary measuring up to 9 mm in height, previously measured 12 mm. This is visually somewhat smaller. There is persistent abnormal signal within the pituitary mass, likely represents hemorrhage. The optic chiasm is normal. No other change is identified. IMPRESSION: No acute intracranial abnormality identified. Partially improved presumed pituitary hemorrhage within a pituitary mass. Reviewed, Interpreted and Dictated by Marlon Corona III, MD Transcribed by Maribeth Concepcion Authenticated and [facility]
== END ==
PROVIDERS: PCP Family Medicine; Visit Provider Neurological Surgery
DX: E23.6 Other disorders of pituitary gland (principal)
CPT/HCPCS: 70553; A9576

== ENCOUNTER → 2023-02-06 07:42 | Outpatient (CLI) | payer OTHER, SELFPAY ==
[2023-02-06 17:27] LABS: Hemoglobin A1C 5.2 % (4.0-6.0)
== END ==
PROVIDERS: PCP Nurse Practitioner Family; Visit Provider Nurse Practitioner Family
DX: E11.9 Type 2 diabetes mellitus without complications (principal)
CPT/HCPCS: 36415; 83036

== ENCOUNTER 2023-02-20 19:56 | Emergency (ER) | payer OTHER, SELFPAY ==
[2023-02-20] VITALS (9 sets, daily range): BP systolic 128–175; BP diastolic 82–110; PULSE 84–130; RESP 14–20; TEMP 36.8; O2SAT 94–100; BMI 29.7
--- NOTE | 2023-02-20 20:01 | ECG_ITS ---
APPROVED REPORT Exam: Resting ECG HR:121 bpm ECG Measurements Heart Rate 121 AXES CO 160 P 67 QRSd 94 QRS 87 QT 328 T 58 QTc 400 Conclusion SINUS TACHYCARDIA MODERATE ST DEPRESSION [0.05+ mV ST DEPRESSION] ABNORMAL ECG UNCONFIRMED REPORT Electronically signed by : Stevan Grove MD 02/21/2023 21:15:45
--- NOTE | 2023-02-20 20:32 | PC.NURSE ---
ROUNDED ON PATIENT, FAMILY MEMBER AT BEDSIDE, NO NEEDS AT THIS TIME, CALL LIGHT WITHIN REACH
--- NOTE | 2023-02-20 20:58 | XR_ITS ---
PROCEDURE INFORMATION: Exam: XR Chest Exam date and time: 02/20/2023 8:56 PM Age: 42 years old Clinical indication: Pain; Patient HX: Chest pressure, elevated blood pressure. TECHNIQUE: Imaging protocol: Radiologic exam of the chest. Views: 2 views. COMPARISON: CR CXR CHEST(2 VIEWS-NOT PORTABLE) 03/08/2016 3:10 PM FINDINGS: Lungs: Normal pulmonary expansion. Pulmonary vasculature grossly normal. No gross pulmonary infiltrates or edema pattern. Pleural spaces: No pleural effusion. No pneumothorax. Heart/Mediastinum: Heart size normal. No tracheal/mediastinal shift. Bones/joints: No acute osseous abnormalities are identified. Bilateral C7 cervical ribs present. Correlate clinically for evidence of thoracic outlet syndrome. Consider follow-up nonemergent CT angiography with thoracic outlet protocol if there is clinical suspicion. IMPRESSION: 1. No acute thoracic process. No change from 03/08/2016. 2. Small bilateral C7 cervical ribs present. Correlate clinically for thoracic outlet syndrome, consider nonemergent CT angiography with thoracic outlet protocol if clinically indicated.
--- NOTE | 2023-02-20 21:05 | PC.NURSE ---
Pt gone to RAD via wheelchair
[2023-02-20 21:10] LABS: Basophils # 0.1 K/mm3 (0-0.2); Basophils % 0.6 % (0.1-2.0); Eosinophils # 0.1 K/mm3 (0.0-0.4); Eosinophils % 1.1 % (0.1-12.0); Hematocrit 41.8 % (37.0-47.0); Hemoglobin 13.6 g/dL (12.2-16.2); Lymphocytes # 2.7 K/mm3 (0.7-4.5); Lymphocytes % 32.2 % (10-50); Mean Corpuscular HGB Conc 32.5 g/dL (31.8-35.4); Mean Corpuscular Hemoglobin 30.1 pg (27.0-31.2); Mean Corpuscular Volume 92.5 fl (81-99); Mean Platelet Volume 7.8 fl (7.4-10.4); Monocytes # 0.4 K/mm3 (0.1-1.0); Monocytes % 4.8 % (1.7-9.3); Neutrophils # 5.1 K/mm3 (1.8-7.8); Neutrophils % 61.2 % (37.0-80.0); Platelet Count 350 K/mm3 (142-424); Red Blood Count 4.52 M/mm3 (4.20-5.40); Red Cell Distribution Width 12.5 % (11.5-17.5); White Blood Count 8.4 K/mm3 (4.8-10.8)
[2023-02-20 21:17] LABS: Alanine Aminotransferase 23 U/L (12-78); Albumin Level 4.5 g/dl (3.5-5.0); Albumin/Globulin Ratio 1.5 (1.1-1.8); Alkaline Phosphatase 68 U/L (38-126); Anion Gap 10.4 mEq/L (5-15); Aspartate Amino Transferase 27 U/L (14-36); Bilirubin,Total 0.8 mg/dl (0.2-1.3); Blood Urea Nitrogen 11 mg/dl (7-17); Calcium 8.8 mg/dl (8.4-10.2); Carbon Dioxide 26 mmol/L (22.0-30.0); Chloride 109 mmol/L (98-107); Creatinine Clearance Estimated 147 mL/min (50-200); Estimated Glomerular Filt Rate 92 ml/min (>60); GFR (African American) 111 ML/MIN (>60); Globulin 3.1 g/dL (1.3-3.2); Glucose 131 mg/dl (74-100); Potassium 3.4 mmoL/L (3.5-5.1); Sodium 142 mmol/L (136-145); Total Protein,Serum 7.6 g/dl (6.3-8.2)
[2023-02-20 21:22] LABS: D-Dimer 1.06 ug/mL (0.0-0.5)
[2023-02-20 21:32] LABS: Troponin I < 0.01 ng/ml (0.00-0.034)
[2023-02-20 21:36] LABS: Free T4 (Free Thyroxine) 1.44 ng/dl (0.78-2.19)
--- NOTE | 2023-02-20 21:37 | HMH.EDGENADL ---
Discharge Plan Disposition Patient Disposition: Home, Self-Care Chief Complaint: Chest Pain Prescriptions Prescriptions: No Action levothyroxine 100 mcg tablet 100 mcg PO DAILY Referrals Follow up/Referrals: Ofelia Still APRN [Primary Care Provider] - See instructions Usman Be MD [Staff Physician] - See instructions Activity Restrictions/Add. Instructions Additional Instructions/Restrictions: At this time is felt you are safe to be discharged home. If new or worsening symptoms please do not hesitate to return the emergency department. Please follow-up with cardiology as you are able and continue to maintain follow-up with your certified lactation educator. Clinical Impressions Clinical Impression: Tachycardia Discharge ED Provider: Jose De Jesus Schultz General Adult HPI <Sacha Savage MD - Last Filed: 02/20/23 23:22> General Chief complaint: Chest Pain Stated complaint: high BP Rapid Heart Rate Time Seen by Provider: 02/20/23 20:23 Mode of Arrival: Ambulatory Source of Information: Patient Limitations: No Limitations Description of Symptoms (Recalled from ER Triage Doc. by RN): Pt was hospitalized at the end of November for a pituitary tumor at , her thyroid medications were changed and she was told to report to ER if her BP stayed elvated for more than 5 hrs. She presents with tachycardia HR 130, and BP 175/104. States she has chest pressure not pain. History of Present Illness HPI narrative: 42-year-old female who presents with hypertension and tachycardia. Patient reports that she has a pituitary tumor which had hemorrhage in November. She was seen at that time. She did not have surgery. She is following up with endocrinology regularly and they are adjusting her thyroid medications. They are concerned that her thyroid has been too high. Patient reports that today her heart rate has been elevated as well as her blood pressure. Prior to her issues with her pituitary she did not have any blood pressure problems. She reports that she has been decreasing her levothyroxine per endocrinology recommendation, most recently took 75 mcg this morning. Patient ports palpitations and chest pressure, denies any current headache dizziness, nausea, vomiting, mental status changes. Related Data Home Medications Medication Instructions Recorded Confirmed levothyroxine 100 mcg tablet 100 mcg PO DAILY hypothyroidism 02/20/23 02/20/23 Allergies Allergy/AdvReac Type Severity Reaction Status Date / Time No Known Allergies Allergy Verified 12/20/22 13:58 PFSH <Sacha Savage MD - Last Filed: 02/20/23 23:22> [facility] Disclaimer: The information contained in this section may have been updated after the patient was seen, as this information can be updated by other users. Medical History (Updated 02/21/23 @ 01:00 by Jose De Jesus Schultz MD) Depression Hypothyroid Strep throat Surgical History H/O partial thyroidectomy History of endometrial ablation Family History Father Cancer kidney Heart attack Stroke Brother Hypertension Diabetes Social History Smoking Status: Never smoker alcohol intake: current substance use type: denies use current occupational status: employed Travel in the last 8 weeks: None marital status: number of children: 2 <Sacha Savage MD - Last Filed: 02/20/23 23:22> ROS Obtained: Yes All systems reviewed & no additional complaints except as documented Physical Exam <Sacha Savage MD - Last Filed: 02/20/23 23:22> General General appearance: alert and in no apparent distress Head Head exam: atraumatic and normocephalic Eye Eye exam: Present normal appearance, PERRL and EOMI ENT ENT exam: Present normal oropharynx and normal external ear exam Neck Neck exam: Present normal in
--- NOTE | 2023-02-20 21:42 | CT_ITS ---
PROCEDURE INFORMATION: Exam: CTA Chest With Contrast Exam date and time: 02/20/2023 10:05 PM Age: 42 years old Clinical indication: Abnormal findings; Abnormal diagnostic tests; Elevated d-dimer; Additional info: Cp, tachycardia, elevated d-dimer TECHNIQUE: Imaging protocol: Computed tomographic angiography of the chest with contrast. Exam focused on the arteries. 3D rendering (Not supervised by radiologist): MIP and/or 3D reconstructed images were created by the technologist. Radiation optimization: All CT scans at this facility use at least one of these dose optimization techniques: automated exposure control; mA and/or kV adjustment per patient size (includes targeted exams where dose is matched to clinical indication); or iterative reconstruction. Contrast material: ISOVUE; Contrast volume: 70 ml; Contrast route: INTRAVENOUS (IV); REPORTING DATA: Count of CT and Cardiac NM exams in prior 12 months: This patient has received 0 known CTs and 0 known cardiac nuclear medicine studies in the 12 months prior to the current study. COMPARISON: CR XR CHEST 2V 02/20/2023 8:56 PM FINDINGS: Pulmonary arteries: The pulmonary arteries enhance appropriately with no evidence of pulmonary embolism. Sensitivity mildly limited by motion artifact in the lung bases. Aorta: Mild ectasia of the ascending aortic segment measuring 3.6 cm diameter without avery aneurysm, evaluation in this region limited by pulsation/motion. No dissection. No mediastinal hematoma. With overhead positioning, there is short segment moderate-severe stenosis of the left subclavian artery where it passes between the anterolateral portion of the left C7 cervical rib and the left clavicle, 65-70% stenosis. Correlate clinically for left-sided thoracic outlet syndrome. Thyroid: The thyroid gland is moderately atrophic. Correlate clinically for evidence of hypothyroidism. Lungs: No acute tracheobronchial abnormalities. No gross pulmonary infiltrates or edema pattern. Minor subsegmental atelectasis bilaterally. Granulomatous calcifications in the right hilar and mediastinum. No pulmonary mass lesions are identified. Granulomatous calcifications in the liver and spleen. Pleural spaces: No pleural effusion. No pneumothorax. Heart: Small volume pericardial fluid in the superior pericardial recesses without avery pericardial effusion. Heart size normal. No pericardial effusion. Lymph nodes: No supraclavicular or axillary adenopathy. No mediastinal or hilar adenopathy. Diaphragm: Small hiatal hernia. Bones/joints: No acute osseous abnormalities are identified. Bilateral C7 cervical ribs are present. Moderate osteoarthritic hypertrophy at the costovertebral facet of the left cervical rib. Soft tissues: The soft tissues of the chest wall demonstrate no acute abnormality. IMPRESSION: 1. With overhead positioning, the left C7 cervical rib producing short segment moderate-severe stenosis of the left subclavian artery, 65-70% stenosis. Correlate clinically for symptoms of left-sided thoracic outlet syndrome. 2. The thyroid gland is moderately atrophic. Correlate clinically for evidence of hypothyroidism. 3. Additional nonemergent findings detailed above.
[2023-02-20 21:50] LABS: Thyroid Stimulating Hormone 0.03 uIU/mL (0.465-4.68)
--- NOTE | 2023-02-20 22:01 | PC.NURSE ---
Patient to radiology
--- NOTE | 2023-02-20 23:10 | ECG_ITS ---
APPROVED REPORT Exam: Resting ECG HR:82 bpm ECG Measurements Heart Rate 82 AXES ID 160 P 60 QRSd 97 QRS 83 QT 371 T 64 QTc 409 Conclusion SINUS RHYTHM NORMAL ECG UNCONFIRMED REPORT Electronically signed by : Stevan Grove MD 02/21/2023 21:15:33
--- NOTE | 2023-02-20 23:16 | PC.NURSE ---
Second trop drawn and sent to lab
[2023-02-21] VITALS: BP 129/88; PULSE 90; RESP 17; O2SAT 98
--- NOTE | 2023-02-21 00:32 | PC.NURSE ---
Dr. Schultz at [facility]
--- NOTE | 2023-02-21 00:36 | PC.NURSE ---
Called LAB to check status of second trop. Spoke with Marzena who advised It will take a little bit longer because we had to do the midnight maintenance on the machine. We had to take it down and put it back up. When asked if it was on at this time she advised, 30ish or so minutes .
[2023-02-21 00:55] LABS: Troponin I < 0.01 ng/ml (0.00-0.034)
[2023-02-21 00:56] VITALS: BP 132/92; PULSE 75; RESP 16; TEMP 36.8
== END 2023-02-21 01:05 | disposition home or self-care (01) ==
PROVIDERS: Emergency Medicine; Emergency Provider Emergency Medicine; PCP Nurse Practitioner Family
DX: R07.9 Chest pain, unspecified (principal); R00.0 Tachycardia, unspecified; I10 Essential (primary) hypertension; E03.9 Hypothyroidism, unspecified; F32.A Depression, unspecified; E23.7 Disorder of pituitary gland, unspecified
CPT/HCPCS: 71046; 71275; 80053; 84439; 84443; 84484; 85025; 85378; 93005; 93041; 99285; Q9967

== ENCOUNTER → 2023-02-24 06:47 | Outpatient (CLI) | payer OTHER, SELFPAY ==
--- NOTE | 2023-02-24 06:52 | NM_ITS ---
APPROVED REPORT Exam: Nuclear Stress Test Indication: chest pressure..fatigue Patient Location: Outpatient Stress Tech: Magda Munroe [place] Tech:CHETAN Roy RT(R)(N) Ht: 5 ft 8 in Wt: 195 lbs Bra Size: 34b HR: 102 bpm BP: 140/101 mmHg BSA: 2.02 m2 Rhythm: NSR TID: 1.13 BMI: 29.6 History: chest pressure..fatigue Procedure: Patient exercised on Flo protocol 9:16 minutes and sec, resting heart rate 102 bpm, resting blood pressure 140/101 mmHg, with exercise maximum heart rate achived was 178 bpm which is 100 % of the maximum predicted heart rate and blood pressure was 174/92 mmHg. Patient denied any complaint of chest pain. Patient has average exercise capacity, achieved 10.1 METs of workload on treadmill, the blood pressure response to exercise was normal. Cardiac Stress and Resting SPECT Images: Cardiac Stress and Resting SPECT images were obtained using technetium 99m Myoview 31.8 mCi stress and 10.63 mCi at rest. This is a technically difficult study due to the proximity of radiotracer uptake in the GI tract to the cardiac borders. This may affect the diagnostic interpretation of the study findings. Resting and stress imaging in both supine and prone positions demonstrate a large-sized, moderate, partially reversible perfusion defect in the anterior LV wall. There is reversibility noted towards the distal segment of the anterior LV wall. Gated imaging demonstrates a normal global LV systolic function. There is mild hypokinesis in the anterior LV wall. LVEF is calculated at 54%. Conclusion: This is a technically difficult study due to the proximity of radiotracer uptake in the GI tract to the cardiac borders. This may affect the diagnostic interpretation of the study findings. Large-sized, moderate, partially reversible perfusion defect in the anterior LV wall. There is reversibility noted towards the distal segment of the anterior LV wall. Findings are suggestive of partial reversible ischemia. Gated imaging demonstrates a normal global LV systolic function. There is mild hypokinesis in the anterior LV wall. LVEF is calculated at 54%. Electronically signed by : Rosa Sin, 02/26/2023 13:12:57
--- NOTE | 2023-02-24 10:02 | CA_ITS ---
APPROVED REPORT Exam: Exercise Treadmill Technologist: Magda Pan, Ht: 5 ft 8 in Wt: 198 lbs BSA: 2.03 m2 HR: 85 bpm BP: 158/102 mmHg Rhythm: NSR Medical History Medications: Levothyroxine,,,,, Stress Test Details Test: Flo HR Resting HR: 102 bpm Max Heart Rate (APMHR): 178 bpm Max HR Achieved: 178 bpm Target HR (85% APMHR): 151 bpm % of APMHR: 100 Recovery HR: 109 bpm HR response to stress: Normal HR response to stress BP Resting BP: 140.0/101.0 mmHg Max BP: 174.0/92.0 mmHg Recovery BP: 147.0/95.0 mmHg BP response to stress: Normal blood pressure response to stress. ECG Resting ECG: NSR, right axis deviation, Q_waves in inferior leads Stress ECG: No ST changes Arrhythmia: None Recovery ECG: No change Recovery Arrhythmia: None Clinical Exercise duration: 09:16 min Highest Stage Achieved: III Exercise capacity: 10.1 METs Overall Exercise Capacity for Age: Average Stress ECG Conclusion The patient was able to exercise for a total of 9:15 on Flo Protocol with stage 3 held to completion. She achieved a total of 10.1 METs. She has an average exercise capacity compared to age and sex matched peers. She has a normal HR and BP response to exercise. Max HR: 178 % of PM: 100% Max BP: 174/92 MEts: 10.1 Test stopped due to: SOA Symptoms: No change in pre-test chest tightness with exercise. Arrhythmias/Ectopy: None ST-T Changes: No significant change at peak stress Conclusion: Average exercise capacity. Normal exercise stress test. Myoview images reported sepatately. Test Summary REST . . . . . . . Sitting REST . . . . . . . Standing REST 03:59 0.0 0.0 102 . 140/101 . . Stage 1 01:00 10.0 1.7 128 . . . . Stage 1 02:00 10.0 1.7 128 . . . . Stage 1 03:00 10.0 1.7 135 . 158/ 90 . . Stage 2 01:00 12.0 2.5 144 . . . . Stage 2 02:00 12.0 2.5 149 . . . . Stage 2 03:00 12.0 2.5 151 . 174/ 92 . . Stage 3 01:00 14.0 3.4 169 . . . . Stage 3 02:00 14.0 3.4 173 . . . . Stage 3 . . . . . . . Stage held Stage 3 03:00 14.0 3.4 176 . . . . Stage 3 . . . . . . . Stage resumed Stage 3 03:16 14.0 3.4 175 . . . Stop exercise at 09:16 RECOVERY 01:00 0.0 0.0 149 . . . . RECOVERY 02:00 0.0 0.0 130 . 164/ 99 . . RECOVERY 03:00 0.0 0.0 120 . 164/ 99 . . RECOVERY 04:00 0.0 0.0 112 . 159/ 95 . . RECOVERY 05:00 0.0 0.0 108 . 147/ 95 . . RECOVERY 05:17 0.0 0.0 115 . 147/ 95 . . Electronically signed by : Rosa Sin, 02/26/2023 13:08:44
== END ==
PROVIDERS: PCP Nurse Practitioner Family; Visit Provider Internal Medicine
DX: R07.89 Other chest pain (principal); R00.0 Tachycardia, unspecified; R00.2 Palpitations; R94.31 Abnormal electrocardiogram [ECG] [EKG]
CPT/HCPCS: 78452; 93017; A9502

== ENCOUNTER → 2023-02-27 13:33 | Outpatient (CLI) | payer OTHER, SELFPAY ==
--- NOTE | 2023-02-27 13:40 | CA_ITS ---
APPROVED REPORT EXAM: Comprehensive 2D, Doppler, and color-flow Echocardiogram Pie Baker: Coreen Martinez RDCS Ht: 5 ft 8 in Wt: 198lbs BSA: 2.03 BP: 142/83 mmHg Indications: ABN GXT,HTN,PALPS,FATIGUE 2D Dimensions LVOT 1.77 cm (M/F) 1.5-2.5 M-Mode Dimensions RVDd 3.00 cm (0.9-2.6) LA Diam 2.48 cm (1.9-4.0) LVDd 4.56 cm (3.5-5.7) Ao Diam 3.20 cm (2.0-3.7) LVDs 3.08 cm (3.5-5.7) IVSd 0.76 cm (0.6-1.1) PWd 0.72 cm (0.6-1.1) EF (Teich) 60.90% FS 32.50% EDV (Teich) 95.40 mL ESV (Teich) 37.30 mL LV Diastology E Decel Time 290.00 (160-240 msec) E/A Ratio 1.4 MED E' 11.50 (< 7 cm/sec) E'/MED E' Ratio 8.14 (>14) LAT E' 11.80 (<10 cm/sec) E/LAT E' Ratio 7.93 (>14) Mitral Valve MV E Max Leonardo. 94.00 (40-130 cm/s) MV A Velocity 69.00 (40-130 cm/s) E/A Ratio 1.35 MV Decel. Time 290.00 (160-240 ms) MV PHT 85.00 ms Left Ventricle The left ventricle is normal size. The left ventricular systolic function is normal. The left ventricular ejection fraction is within the normal range. There is normal left ventricular wall thickness. There is normal LV segmental wall motion. The left ventricular diastolic function is normal. LVEF is 60%. Right Ventricle The right ventricle is normal size. Significant trabeculations noted in the distal RV lumen, which likely represent prominence of the kt supraventricularis within the right ventricle The right ventricular systolic function is normal. Atria The left atrium size is normal. The right atrium size is normal. There is no Doppler evidnece of interatrial shunt. Aortic Valve The aortic valve is normal in structure. There is no aortic valvular stenosis. No aortic regurgitation is present. Mitral Valve The mitral valve is normal in structure. No evidence of mitral valve stenosis. There is no mitral valve regurgitation noted. Tricuspid Valve The tricuspid valve leaflets are thin and pliable. Trace (physiologic) tricuspid regurgitation. Pulmonic Valve The pulmonary valve is normal in structure. Trace (physiologic) pulmonic regurgitation. Great Vessels The aortic root is normal in size. IVC is normal in size and collapses >50% with inspiration. Pericardium There is no pericardial effusion. Other Information Study Quality: Fair Conclusion Normal biventricular systolic function. No significant valvular disease. Prominent trabeculations within the RV, likely representing prominence of the RV kt supraventricularis. Correlate with other imaging modalities. Electronically signed by : Rosa Sni, 02/27/2023 21:35:53
== END ==
PROVIDERS: PCP Nurse Practitioner Family; Visit Provider Internal Medicine
DX: R07.89 Other chest pain (principal); R00.0 Tachycardia, unspecified; R00.2 Palpitations; R94.31 Abnormal electrocardiogram [ECG] [EKG]
CPT/HCPCS: 93306

== ENCOUNTER → 2023-03-02 15:10 | Outpatient (CLI) | payer OTHER, SELFPAY ==
[2023-03-02 16:27] LABS: Thyroid Stimulating Hormone 0.25 uIU/mL (0.465-4.68)
== END ==
PROVIDERS: PCP Nurse Practitioner Family; Visit Provider Internal Medicine Endocrinology, Diabetes & Metabolism
DX: E03.8 Other specified hypothyroidism (principal); E06.3 Autoimmune thyroiditis
CPT/HCPCS: 36415; 84439; 84443

== ENCOUNTER → 2023-03-09 09:28 | Day surgery (SDC) | payer OTHER, SELFPAY | PROVIDERS: PCP Nurse Practitioner Family; Visit Provider Internal Medicine | DX: Z53.09 Procedure and treatment not carried out because of other contraindication (principal) ==

== ENCOUNTER 2023-03-13 07:25 | Day surgery (SDC) | payer OTHER, SELFPAY ==
[2023-03-13] VITALS (12 sets, daily range): BP systolic 104–135; BP diastolic 63–98; PULSE 56–89; RESP 16–18; O2SAT 98–100; BMI 30.1
--- NOTE | 2023-03-13 07:07 | IR_ITS ---
APPROVED REPORT Patient Location: Outpatient PROCEDURES Left heart catheterization Left ventriculogram Selective coronary angiogram INDICATION Angina pectoris, Abnormal stress test, Informed consent was obtained prior to the procedure. COMPLICATIONS None Estimated Blood Loss: Less than 10 mls TECHNIQUE One percent lidocaine used to anesthetize the right anterior aspect of the wrist. The right radial artery was accessed via the Seldinger technique. A 6 Telugu sheath was placed in the right radial artery. 2.5 mg of Verapamil, 800 mcg of nitroglycerin, 1mg Lidocaine and 5000 U Heparin were given through the arterial sheath. The papa catheter was also used to perform left heart catheterization, left ventriculogram and selective coronary angiogram. At the end of the procedure the sheath was removed good hemostasis was achieved using Traclet band, patient was transferred to the postop holding area in stable condition. ANGIOGRAPHIC RESULTS The left main artery Normal The left anterior descending artery Normal The circumflex artery Normal The right coronary artery Dominant normal The CARCAMO ventriculogram reveals Normal 65% The left ventricular end-diastolic pressure Normal 10 mmHg IMPRESSION Normal coronary arteries Normal ejection fraction Normal left ventricular end-diastolic pressure PLAN 1. Consider cardiac MRI given nondiagnostic evaluation of right ventricular anatomy Electronically signed by : Usman Be MD 03/15/2023 14:17:29
[2023-03-13 08:38] LABS: HCG Qualitative, Serum Negative (Negative)
== END 2023-03-13 13:04 | disposition home or self-care (01) ==
PROVIDERS: PCP Nurse Practitioner Family; Visit Provider Internal Medicine
DX: I20.8 Other forms of angina pectoris (principal); I77.1 Stricture of artery; E03.9 Hypothyroidism, unspecified; R00.0 Tachycardia, unspecified; R94.39 Abnormal result of other cardiovascular function study
CPT/HCPCS: 84703; 93458; 99152; C1725; C1769; J1644; Q9967

== ENCOUNTER → 2023-03-14 11:20 | Outpatient (CLI) | payer OTHER, SELFPAY ==
[2023-03-14 13:08] LABS: Basophils % 0.6 % (0.1-2.0); Eosinophils % 0.7 % (0.1-12.0); Hematocrit 44.9 % (37.0-47.0); Hemoglobin 14.7 g/dL (12.2-16.2); Lymphocytes # 1.8 K/mm3 (0.7-4.5); Lymphocytes % 28.3 % (10-50); Mean Corpuscular HGB Conc 32.8 g/dL (31.8-35.4); Mean Corpuscular Hemoglobin 30.7 pg (27.0-31.2); Mean Corpuscular Volume 93.5 fl (81-99); Mean Platelet Volume 8.2 fl (7.4-10.4); Monocytes # 0.3 K/mm3 (0.1-1.0); Monocytes % 4.7 % (1.7-9.3); Neutrophils # 4.2 K/mm3 (1.8-7.8); Neutrophils % 65.7 % (37.0-80.0); Platelet Count 336 K/mm3 (142-424); Red Cell Distribution Width 12.7 % (11.5-17.5); White Blood Count 6.4 K/mm3 (4.8-10.8)
[2023-03-14 13:49] LABS: Anion Gap 16.4 mEq/L (5-15); Blood Urea Nitrogen 6 mg/dl (7-17); Calcium 9.5 mg/dl (8.4-10.2); Carbon Dioxide 25 mmol/L (22.0-30.0); Chloride 105 mmol/L (98-107); Estimated Glomerular Filt Rate 92 ml/min (>60); GFR (African American) 111 ML/MIN (>60); Glucose 100 mg/dl (74-100); Potassium 4.4 mmoL/L (3.5-5.1); Sodium 142 mmol/L (136-145)
[2023-03-14 14:19] LABS: Thyroid Stimulating Hormone 1.13 uIU/mL (0.465-4.68)
== END ==
PROVIDERS: PCP Nurse Practitioner Family; Visit Provider Internal Medicine
DX: R06.00 Dyspnea, unspecified (principal); R42 Dizziness and giddiness; R00.1 Bradycardia, unspecified; R00.2 Palpitations; E03.9 Hypothyroidism, unspecified; E23.6 Other disorders of pituitary gland; I77.1 Stricture of artery; I63.9 Cerebral infarction, unspecified
CPT/HCPCS: 36415; 80048; 84439; 84443; 85025

== ENCOUNTER → 2023-04-10 12:01 | Outpatient (CLI) | payer OTHER, SELFPAY ==
[2023-04-15 17:07] LABS: Renin Activity, Plasma 4.151 ng/mL/hr (0.167-5.380)
== END ==
PROVIDERS: PCP Nurse Practitioner Family; Visit Provider Internal Medicine
DX: E03.9 Hypothyroidism, unspecified (principal); E23.6 Other disorders of pituitary gland; I77.1 Stricture of artery
CPT/HCPCS: 82088; 84244

== ENCOUNTER → 2023-04-12 08:50 | Outpatient (CLI) | payer OTHER, SELFPAY ==
[2023-04-19 07:00] LABS: Metanephrine, U,24hr 126 ug/24 hr (36-209); Metanephrine, Ur 63 ug/L (Undefined); Normetanephr.,U,24h 322 ug/24 hr (131-612); Normetanephrine, Ur 161 ug/L (Undefined)
== END ==
PROVIDERS: PCP Nurse Practitioner Family; Visit Provider Internal Medicine
DX: R06.00 Dyspnea, unspecified (principal); R42 Dizziness and giddiness; R00.2 Palpitations; R00.1 Bradycardia, unspecified; E03.9 Hypothyroidism, unspecified; E23.6 Other disorders of pituitary gland; I77.1 Stricture of artery; I99.8 Other disorder of circulatory system
CPT/HCPCS: 82384; 83835; 84585

== ENCOUNTER → 2023-04-14 09:13 | Outpatient (CLI) | payer OTHER, SELFPAY | PROVIDERS: PCP Nurse Practitioner Family; Visit Provider Internal Medicine | DX: R06.00 Dyspnea, unspecified (principal); I77.1 Stricture of artery; R42 Dizziness and giddiness; E03.9 Hypothyroidism, unspecified ==

== ENCOUNTER → 2023-04-22 10:14 | Outpatient (CLI) | payer OTHER, SELFPAY ==
[2023-04-27 02:07] LABS: Dopamine, Ur, 24hr 390 ug/24 hr (0-510); Dopamine, Urine 130 ug/L (Undefined); Epinephrine, U, 24hr 9 ug/24 hr (0-20); Epinephrine, Urine 3 ug/L (Undefined); Norepinephrine, Ur 37 ug/L (Undefined); Norepinephrine,U,24h 111 ug/24 hr (0-135)
== END ==
PROVIDERS: PCP Nurse Practitioner Family; Visit Provider Internal Medicine
DX: R06.00 Dyspnea, unspecified (principal); R42 Dizziness and giddiness; R00.2 Palpitations; R00.1 Bradycardia, unspecified; E03.9 Hypothyroidism, unspecified; E23.6 Other disorders of pituitary gland; I77.1 Stricture of artery; I99.8 Other disorder of circulatory system
CPT/HCPCS: 82384; 84585

== ENCOUNTER → 2023-04-24 14:51 | Outpatient (CLI) | payer OTHER, SELFPAY | PROVIDERS: PCP Nurse Practitioner Family; Visit Provider Internal Medicine | DX: R06.00 Dyspnea, unspecified (principal) ==

== ENCOUNTER → 2023-04-25 08:28 | Outpatient (CLI) | payer OTHER, SELFPAY ==
[2023-04-25 10:49] LABS: Free T4 (Free Thyroxine) 1.09 ng/dl (0.78-2.19)
== END ==
PROVIDERS: PCP Nurse Practitioner Family; Visit Provider Nurse Practitioner Family
DX: E03.9 Hypothyroidism, unspecified (principal)
CPT/HCPCS: 36415; 84439; 84443

== ENCOUNTER → 2023-05-26 09:06 | Outpatient (CLI) | payer OTHER, SELFPAY ==
[2023-05-26 10:53] LABS: Thyroid Stimulating Hormone 4.74 uIU/mL (0.465-4.68)
[2023-05-26 11:25] LABS: Free T4 (Free Thyroxine) 0.63 ng/dl (0.78-2.19)
[2023-05-27 08:38] LABS: Estradiol 77.8 pg/mL (.); Triiodothyronine (T3) Free 4.1 pg/mL (2.0-4.4)
== END ==
PROVIDERS: PCP Nurse Practitioner Family; Visit Provider Internal Medicine Endocrinology, Diabetes & Metabolism
DX: E03.8 Other specified hypothyroidism (principal); E06.3 Autoimmune thyroiditis; D35.2 Benign neoplasm of pituitary gland
CPT/HCPCS: 36415; 82670; 82787; 84439; 84443; 84481

== ENCOUNTER → 2023-06-30 15:20 | Outpatient (CLI) | payer OTHER, SELFPAY ==
[2023-06-30 17:01] LABS: Free T4 (Free Thyroxine) 0.57 ng/dl (0.78-2.19)
[2023-07-02 14:56] LABS: Triiodothyronine (T3) Free 2.8 pg/mL (2.0-4.4)
== END ==
PROVIDERS: PCP Nurse Practitioner Family; Visit Provider Internal Medicine Endocrinology, Diabetes & Metabolism
DX: E03.8 Other specified hypothyroidism (principal); E06.3 Autoimmune thyroiditis
CPT/HCPCS: 36415; 84439; 84443; 84481

== ENCOUNTER → 2023-07-06 08:15 | Outpatient (CLI) | payer OTHER, SELFPAY ==
--- NOTE | 2023-07-06 08:32 | MM_ITS ---
PROCEDURE INFORMATION: Exam: US Left Breast, Complete MG Bilateral Diagnostic Breast Tomosynthesis Exam date and time: 07/06/2023 8:19 AM Age: 42 years old Clinical indication: Concern for left breast lump and right screening. A maternal aunt had breast cancer. TECHNIQUE: Imaging protocol: Complete ultrasound of all four quadrants of the left breast and the retroareolar regions, including ultrasound of the axilla when performed. Bilateral Diagnostic tomosynthesis and 2D mammography including computer-aided detection (CAD) when performed. Unilateral or bilateral exam. Triangular skin marker placed on the palpable concern with spot compression added. COMPARISON: 1. MG MM DIG SCREENING MAMM BI W/CAD 03/31/2022 9:19 AM 2. MG MM DIG SCREENING MAMM BI W/CAD 03/19/2020 2:00 PM 3. MG DIG MAMM-DX UNI-LT 02/08/2019 4:20 PM 4. MG DIG MAMM-SCREEN PIERRE 02/07/2019 10:47 AM FINDINGS: MAMMOGRAPHY: Breast composition: The breasts are heterogeneously dense, which may obscure small masses. Mass: Corresponding to the palpable lump in the left upper outer quadrant, posterior 3rd, approximately 2.8 cm partly visualized, partly obscured, oval mass. Architectural distortion: None. Calcifications: No suspicious calcifications. Asymmetric density: None. Skin thickening: None. Axillary adenopathy: None. ULTRASOUND: Left sonography, all 4 quadrants, retroareolar and axilla. Corresponding to the palpable lump at 2 o'clock 5 cm from the nipple is an anechoic cyst with a thin avascular septation measuring 2.7 x 1.2 x 2.6 cm. Several probable complicated clusters of cysts, which are similar appearing, at 4 o'clock 3 cm from the nipple measuring 1.3 x 1.2 x 0.6 cm and at 11 o'clock 2 cm from the nipple measuring 0.8 x 0.8 x 0.6 cm. Several probable complicated cysts, which are similar appearing, at 12 o'clock 1 cm from the nipple measuring 0.5 x 0.4 x 0.5 cm and at 5 o'clock 3 cm from the nipple measuring 0.5 x 0.8 x 0.4 cm. Unremarkable image of the axilla. IMPRESSION: Palpable lump corresponds to benign-appearing 2.7 cm cyst at 2 o'clock. Aspiration can be performed if symptomatic. Several similar appearing probable complicated cluster of cysts and probable complicated cysts. Suggest six-month follow-up left sonography unless otherwise clinically indicated. ASSESSMENT: BI-RADS Category 3: Probably benign
== END ==
PROVIDERS: PCP Nurse Practitioner Family; Visit Provider Obstetrics & Gynecology
DX: N63.20 Unspecified lump in the left breast, unspecified quadrant (principal); N64.4 Mastodynia
CPT/HCPCS: 76641; 77062; 77066; G0279

== ENCOUNTER 2023-09-05 16:26 | Emergency (ER) | payer OTHER, SELFPAY ==
[2023-09-05 16:40] VITALS: BP 145/93; PULSE 97; RESP 18; TEMP 37.1; O2SAT 99; BMI 27.7
--- NOTE | 2023-09-05 16:49 | ED_ITS ---
Discharge Plan Disposition Patient Disposition: Home, Self-Care Condition: Good Prescriptions Prescriptions: New benzonatate [benzonatate] 100 mg capsule 100 mg PO TIDP PRN (Reason: Cough) Qty: 30 0RF ondansetron 4 mg Tablet,Disintegrating 4 mg PO Q8H PRN (Reason: Nausea) Qty: 12 0RF No Action thyroid (pork) [[employer]ER Thyroid] 60 mg tablet 60 mg PO DAILY buspirone 7.5 mg tablet 7.5 mg PO BID PRN (Reason: anxiety) Qty: 60 2RF valsartan 80 mg tablet 80 mg PO DAILY Qty: 30 2RF scopolamine base 1 mg over 3 days patch 3 day 1 patch transdermal Q3D PRN (Reason: motion sickness) Qty: 3 0RF Referrals Follow up/Referrals: Gisselle Bustillo APRN [Primary Care Provider] - See instructions Activity Restrictions/Add. Instructions Additional Instructions/Restrictions: Drink plenty of fluids. Take tylenol or ibuprofen for pain or fever. Take the medications as directed. Follow up with your regular doctor. GO TO THE ER FOR ANY WORSENING SYMPTOMS Clinical Impressions Clinical Impression: Influenza B Stand Alone Forms Stand Alone Forms: Work/School Release Instructions Patient Instructions: DI for Influenza -- Adult Discharge ED Provider: Liam Castellon [facility] General Stated complaint: fever, cough, body aches Time Seen by Provider: 09/05/23 16:49 History of Present Illness Provider Complaint: She states that since yesterday she has had fever, chills, body aches, malaise, and sore throat. Related Data Home Medications Medication Instructions Recorded Confirmed thyroid (pork) 60 mg tablet (FIN[employer]ER 60 mg PO DAILY 05/16/23 09/05/23 Thyroid) Previous Rx's Medication Instructions Recorded buspirone 7.5 mg tablet 7.5 mg PO BID PRN anxiety #60 tabs 04/18/23 valsartan 80 mg tablet 80 mg PO DAILY #30 tabs 04/19/23 scopolamine base 1 mg over 3 days 1 patch transdermal Q3D PRN motion 06/05/23 transdermal patch sickness #3 ea benzonatate 100 mg capsule 100 mg PO TIDP PRN Cough #30 caps 09/05/23 ondansetron 4 mg disintegrating 4 mg PO Q8H PRN Nausea #12 tabs 09/05/23 tablet Allergies Allergy/AdvReac Type Severity Reaction Status Date / Time No Known Allergies Allergy Verified 09/05/23 16:56 [facility] Disclaimer: The information contained in this section may have been updated after the patient was seen, as this information can be updated by other users. Medical History Abnormal electrocardiogram [ECG] [EKG] Abnormal findings on cardiac catheterization Chest tightness Depression 2018 Hypothyroid Strep throat Surgical History H/O partial thyroidectomy 2012 History of endometrial ablation 2017 Family History Father Cancer kidney Heart attack Stroke Brother Hypertension Diabetes Social History Smoking Status: Never smoker alcohol intake: current substance use type: denies use current occupational status: employed Travel in the last 8 weeks: None marital status: number of children: 2 ROS Obtained: Yes All systems reviewed & no additional complaints except as documented Constitutional Constitutional: Reports chills and Reports fever(s) Eyes Eyes: Denies eye discharge ENT Ears, Nose, Mouth, and Throat: Reports as per HPI Cardiovascular Cardiovascular: Denies chest pain Respiratory Respiratory: Denies chest congestion and Reports cough Gastrointestinal Gastrointestingal: Reports nausea; Denies abdominal pain, constipation, cramping, diarrhea or vomiting Musculoskeletal Musculoskeletal: Denies arthralgias Integumentary/Breasts Skin/Breast: Denies rash Neurologic Neurologic: Denies paresthesias Physical Exam General General appearance: alert and in no apparent distress Eye Eye exam: Present normal appearance, PERRL and EOMI ENT ENT exam: Present mucous membranes moist and normal external ear exam Expanded ENT Exam External ear exam: Present normal external inspection TM/Canal exam: Bilateral TM: erythema and bulging Nose exam: Absent sinus tenderness Nasal speculum exam: Bilateral: normal Mouth exam: Present normal external inspection; Absent drooling Teeth exam: Present normal inspection Throat exam: Present tonsillar erythema and tonsillomegaly Neck Neck exam: Present normal inspection, full ROM and trachea midline; Absent tenderness, lymphadenopathy or thyromegaly Chest Chest inspection: Present normal inspection and symmetric chest wall rise; Absent tenderness or rash Respiratory Respiratory exam: Present normal lung sounds bilaterally; Absent respiratory distress, wheezes, stridor or accessory muscle use Cardiovascular Cardiovascular exam: Present regular rate, normal rhythm and normal heart sounds Abdominal Exam Abdominal exam: Present soft; Absent distention, tenderness, guarding, rebound or rigidity Extremities Exam Extremities exam: Present normal inspection, full ROM and normal capillary refill; Absent tenderness or calf tenderness Back Exam Back exam: Present normal inspection and full ROM; Absent tenderness Neurological Exam Neurological exam: Present alert and oriented X3 Psychiatric Psychiatric exam: Present normal affect and normal mood Skin Skin exam: Present warm, dry, intact and normal color Lymphatic Lymphatic Findings: no adenopathy Medical Decision Making Medical Records Medical records reviewed: No I reviewed the patient's medical records. Caden Inquiry Pt receiving controlled substance: No Lab Data Lab results reviewed: Yes I reviewed the patient's lab results. Orders (Tests/Meds): ORDERS Category Date Time Status Rapid PCR Covid and Flu A/B Stat Lab 09/05/23 16:46 Ordered
[2023-09-05 17:06] LABS: Coronavirus 19, PCR Not Detected (NotDetected); Influenza A, PCR Not Detected (NotDetected)
[2023-09-05 17:15] LABS: UTC Strep Screen (Rapid) Negative (Negative)
[2023-09-05 18:02] LABS: Influenza B, PCR Detected (NotDetected)
[2023-09-05 18:22] VITALS: BP 145/93; PULSE 97; RESP 18; TEMP 37.1; O2SAT 99
== END 2023-09-05 18:22 | disposition home or self-care (01) ==
PROVIDERS: Emergency Provider Nurse Practitioner Family; PCP Nurse Practitioner Family
DX: J10.1 Influenza due to other identified influenza virus with other respiratory manifestations (principal); R05.9 Cough, unspecified; R11.0 Nausea; R50.9 Fever, unspecified; R07.0 Pain in throat; R53.81 Other malaise; M79.18 Myalgia, other site; E03.9 Hypothyroidism, unspecified
CPT/HCPCS: 87636; 87880; 99212; 99214; G0463

== ENCOUNTER 2023-10-26 11:35 | Outpatient (CLI) | payer OTHER, SELFPAY ==
[2023-10-26 12:52] LABS: Free T4 (Free Thyroxine) 0.71 ng/dl (0.78-2.19)
[2023-10-27 11:14] LABS: Triiodothyronine (T3) Free 3.5 pg/mL (2.0-4.4); Triiodothyronine (T3) Total 139 ng/dL (71-180)
== END 2023-10-26 23:59 ==
LOC: LAB 11:37
PROVIDERS: PCP Nurse Practitioner Family; Visit Provider Nurse Practitioner Family
DX: E03.9 Hypothyroidism, unspecified (principal)
CPT/HCPCS: 36415; 84439; 84443; 84480; 84481

== ENCOUNTER 2023-12-15 09:10 | Outpatient (CLI) | payer OTHER, SELFPAY ==
[2023-12-16 14:19] LABS: Estradiol 16.1 pg/mL (.); FSH 4.7 mIU/mL (.); LH 2.7 mIU/mL (.); Prolactin 15.6 ng/mL (4.8-33.4)
== END 2023-12-15 23:59 | disposition home or self-care (01) ==
LOC: LAB 09:11
PROVIDERS: PCP Nurse Practitioner Family; Visit Provider Internal Medicine Endocrinology, Diabetes & Metabolism
DX: D35.2 Benign neoplasm of pituitary gland (principal)
CPT/HCPCS: 36415; 82533; 82670; 83001; 83002; 84146

== ENCOUNTER 2023-12-19 08:18 | Outpatient (CLI) | payer OTHER, SELFPAY ==
[2023-12-19 09:20] LABS: T4 (Thyroxine) 6.3 ug/dl (5.53-11.0)
[2023-12-20 12:59] LABS: Triiodothyronine (T3) Free 2.3 pg/mL (2.0-4.4)
== END 2023-12-19 23:59 | disposition home or self-care (01) ==
LOC: LAB 08:19
PROVIDERS: PCP Nurse Practitioner Family; Visit Provider Internal Medicine Endocrinology, Diabetes & Metabolism
DX: E03.8 Other specified hypothyroidism (principal); E06.3 Autoimmune thyroiditis
CPT/HCPCS: 36415; 84436; 84481

== ENCOUNTER 2024-01-04 13:18 | Outpatient (CLI) | payer OTHER, SELFPAY ==
--- NOTE | 2024-01-04 13:22 | US_ITS ---
PROCEDURE INFORMATION: Exam: US Left Breast, Complete Exam date and time: 01/04/2024 1:31 PM Age: 43 years old Clinical indication: 6 mo f/u left breast masses TECHNIQUE: Imaging protocol: Complete ultrasound of all four quadrants of the left breast and the retroareolar regions, including ultrasound of the axilla when performed. COMPARISON: US BREAST LT COMPLETE 07/06/2023 9:02 AM FINDINGS: ULTRASOUND: Breast ultrasound findings: Sonographic images of the left breast including the retroareolar region, all 4 quadrants and the axilla do not demonstrate any solid masses. Scattered cysts are present including a palpable 3 cm cyst in the left 2 o'clock axis 5 cm from the nipple. In the left 4 o'clock axis 3 cm from the nipple is a stable probable debris-filled cyst or 2 adjacent debris-filled cysts measuring 1.4 x 1.1 cm. In the left 5 o'clock axis 3 cm from the nipple is a stable probable debris-filled cysts measuring 0.5 x 0.4 cm. Similar-appearing probable debris-filled cyst in the left 10 o'clock axis measuring 0.5 x 0.3 cm, new compared to prior examination. In the left 11 o'clock axis 2 cm from the nipple is a stable lobulated hypoechoic mass measuring 0.7 x 0.8 x 0.8 cm. No significant vascular flow is present. The finding may reflect a cluster of debris-filled cysts. No architectural distortion or acoustical shadowing. No skin thickening or axillary adenopathy. IMPRESSION: Stable masses in left breast likely reflecting simple and debris-filled cysts. These are unchanged compared to prior study dated 07/06/2023 with the exception of interval development of 1 subcentimeter similar-appearing probably benign mass in the left 10 o'clock axis. A six-month follow-up left breast ultrasound is recommended for continued close surveillance ASSESSMENT: BI-RADS Category 3: Probably benign.
== END 2024-01-04 23:59 | disposition home or self-care (01) ==
LOC: RAD 13:18
PROVIDERS: PCP Nurse Practitioner Family; Visit Provider Obstetrics & Gynecology
DX: R92.8 Other abnormal and inconclusive findings on diagnostic imaging of breast (principal)
CPT/HCPCS: 76641

== ENCOUNTER 2024-01-05 09:26 | Outpatient (CLI) | payer OTHER, SELFPAY | END 2024-01-05 23:59 | disposition home or self-care (01) | LOC: RT 09:26 | PROVIDERS: PCP Nurse Practitioner Family; Visit Provider Nurse Practitioner Family | DX: R00.2 Palpitations (principal) | CPT/HCPCS: 93225; 93226 ==

== ENCOUNTER 2024-01-26 08:48 | Outpatient (CLI) | payer OTHER, SELFPAY ==
[2024-01-26 10:50] LABS: Free T4 (Free Thyroxine) 0.81 ng/dl (0.78-2.19); Free Thyroxine Index 2.3 ug/dL (5.93-13.13); T4 (Thyroxine) 7.4 ug/dl (5.53-11.0); Triiodothryronine (T3) Uptake 31 % (23.5-40.5)
[2024-01-26 11:03] LABS: Thyroid Stimulating Hormone 8.89 uIU/mL (0.465-4.68)
[2024-01-27 04:09] LABS: Thyroid Peroxidase Antibodies 88 IU/mL (0-34)
== END 2024-01-26 23:59 | disposition home or self-care (01) ==
LOC: LAB 08:48
PROVIDERS: PCP Nurse Practitioner Family; Visit Provider Nurse Practitioner Family
DX: E03.9 Hypothyroidism, unspecified (principal)
CPT/HCPCS: 36415; 84436; 84439; 84443; 84479; 86376

== ENCOUNTER 2024-03-22 07:56 | Outpatient (CLI) | payer OTHER, SELFPAY ==
[2024-03-22 09:08] LABS: Free T4 (Free Thyroxine) 1.03 ng/dl (0.78-2.19)
[2024-03-22 09:22] LABS: Thyroid Stimulating Hormone 4.59 uIU/mL (0.465-4.68)
== END 2024-03-22 23:59 | disposition home or self-care (01) ==
LOC: LAB 07:57
PROVIDERS: PCP Internal Medicine Adolescent Medicine; Visit Provider Nurse Practitioner Family
DX: E03.9 Hypothyroidism, unspecified (principal)
CPT/HCPCS: 36415; 84439; 84443

== ENCOUNTER 2024-05-03 07:56 | Outpatient (CLI) | payer OTHER, SELFPAY ==
[2024-05-03 08:14] LABS: Basophils # 0.1 K/mm3 (0-0.2); Basophils % 1.3 % (0.1-2.0); Eosinophils # 0.1 K/mm3 (0.0-0.4); Eosinophils % 1.9 % (0.1-12.0); Hematocrit 40.2 % (37.0-47.0); Hemoglobin 13.3 g/dL (12.2-16.2); Lymphocytes # 1.5 K/mm3 (0.7-4.5); Lymphocytes % 30.2 % (10-50); Mean Corpuscular HGB Conc 33.1 g/dL (31.8-35.4); Mean Corpuscular Hemoglobin 32.2 pg (27.0-31.2); Mean Corpuscular Volume 97.3 fl (81-99); Mean Platelet Volume 7.1 fl (7.4-10.4); Monocytes # 0.3 K/mm3 (0.1-1.0); Monocytes % 5.7 % (1.7-9.3); Neutrophils # 3.1 K/mm3 (1.8-7.8); Neutrophils % 60.9 % (37.0-80.0); Platelet Count 260 K/mm3 (142-424); Red Blood Count 4.13 M/mm3 (4.20-5.40); Red Cell Distribution Width 12.8 % (11.5-17.5); White Blood Count 5.1 K/mm3 (4.8-10.8)
[2024-05-03 08:54] LABS: Alanine Aminotransferase 21 U/L (12-78); Albumin Level 4.4 g/dl (3.5-5.0); Albumin/Globulin Ratio 1.8 (1.1-1.8); Alkaline Phosphatase 44 U/L (38-126); Anion Gap 9.2 mEq/L (5-15); Aspartate Amino Transferase 26 U/L (14-36); Bilirubin,Total 1.6 mg/dl (0.2-1.3); Blood Urea Nitrogen 14 mg/dl (7-17); Carbon Dioxide 25 mmol/L (22.0-30.0); Chloride 104 mmol/L (98-107); Estimated Glomerular Filt Rate 78 ml/min (>60); GFR (African American) 95 ML/MIN (>60); Globulin 2.4 g/dL (1.3-3.2); Glucose 95 mg/dl (74-100); Magnesium 1.8 mg/dl (1.6-2.3); Potassium 4.2 mmoL/L (3.5-5.1); Sodium 134 mmol/L (136-145); Total Protein,Serum 6.8 g/dl (6.3-8.2)
[2024-05-03 09:25] LABS: Thyroid Stimulating Hormone 4.45 uIU/mL (0.465-4.68)
== END 2024-05-03 23:59 | disposition home or self-care (01) ==
LOC: LAB 07:57
PROVIDERS: PCP Nurse Practitioner Family; Visit Provider Nurse Practitioner Family
DX: R25.2 Cramp and spasm (principal); E03.9 Hypothyroidism, unspecified
CPT/HCPCS: 36415; 80050; 80053; 83735; 84439; 84443; 85025

== ENCOUNTER 2024-05-09 15:25 | Outpatient (CLI) | payer OTHER, SELFPAY ==
[2024-05-09 16:01] LABS: Albumin Level 4.8 g/dl (3.5-5.0); Chloride 103 mmol/L (98-107); Potassium 4.4 mmoL/L (3.5-5.1); Sodium 138 mmol/L (136-145)
[2024-05-09 16:03] LABS: Blood Urea Nitrogen 10 mg/dl (7-17); Estimated Glomerular Filt Rate 78 ml/min (>60); GFR (African American) 95 ML/MIN (>60)
[2024-05-09 16:04] LABS: Alanine Aminotransferase 19 U/L (12-78); Albumin/Globulin Ratio 1.8 (1.1-1.8); Alkaline Phosphatase 51 U/L (38-126); Anion Gap 11.4 mEq/L (5-15); Aspartate Amino Transferase 26 U/L (14-36); Bilirubin,Total 1.3 mg/dl (0.2-1.3); Calcium 9.4 mg/dl (8.4-10.2); Carbon Dioxide 28 mmol/L (22.0-30.0); Globulin 2.7 g/dL (1.3-3.2); Glucose 100 mg/dl (74-100); Total Protein,Serum 7.5 g/dl (6.3-8.2)
== END 2024-05-09 23:59 | disposition home or self-care (01) ==
LOC: LAB 15:25
PROVIDERS: PCP Nurse Practitioner Family; Visit Provider Nurse Practitioner Family
DX: E78.1 Pure hyperglyceridemia (principal); E80.6 Other disorders of bilirubin metabolism
CPT/HCPCS: 36415; 80053

== ENCOUNTER 2024-06-25 10:57 | Outpatient (CLI) | payer OTHER, SELFPAY ==
--- NOTE | 2024-06-25 10:57 | US_ITS ---
FINAL REPORT CLINICAL HISTORY: US Guided Bx of Left Breast X 2 -- Breast Cysts -- DR. EDUARDA JORDAN -- DUAL CORE FINDINGS: ULTRASOUND-GUIDED LEFT BREAST CORE BIOPSY TECHNIQUE: Limited images were obtained to localize region of interest. The left breast was prepped in a routine sterile fashion and locally anesthetized with 1% lidocaine. Standard written informed consent was obtained. Hypoechoic lesion was localized in the left breast at approximately 11:00 measuring nearly 1 cm. Initially an 18-gauge needle was directed into the lesion in hopes that fluid could be aspirated and lesion decompressed. However no fluid could be aspirated. A 15-gauge guide needle was then directed toward the lesion. The biopsy needle was positioned within the outer periphery of the lesion. A total of 4 passes were made with a 16 gauge core biopsy needle. A biopsy marker clip was deployed in satisfactory position. Biopsy marker was well seen within the lesion. Procedure was well tolerated . CONCLUSION: 1. Technically successful ultrasound guided core biopsy of left breast lesion as above. 2. Biopsy marker clip deployed 3. Pathology pending ULTRASOUND DIRECTED CYST ASPIRATION History: Left breast mass Technique: Lesion was targeted in the left upper outer quadrant at 2:00. An oval mildly septated lesion was identified. Local anesthesia was achieved with 1% lidocaine. An 18-gauge needle was directed into the cystic lesion. Approximately 13 mL's of serous fluid was aspirated. Aspirate was sent for cytologic evaluation. Only a tiny amount of residual cyst was noted after aspiration. Imaging features are most compatible with a benign cyst. IMPRESSION: 1. Technically successful cyst aspiration and near complete decompression dominant lesion left upper outer quadrant 2. Fluid sent for cytology Authenticated and ERN
== END 2024-06-25 23:59 | disposition home or self-care (01) ==
LOC: RAD 10:57
PROVIDERS: PCP Nurse Practitioner Family; Visit Provider Obstetrics & Gynecology
DX: N60.02 Solitary cyst of left breast (principal); R92.8 Other abnormal and inconclusive findings on diagnostic imaging of breast
CPT/HCPCS: 19083

== ENCOUNTER 2024-09-10 13:31 | Outpatient (CLI) | payer OTHER, SELFPAY ==
--- NOTE | 2024-09-10 13:32 | MM_ITS ---
PROCEDURE INFORMATION: Exam: MG Bilateral Screening 3D Mammography Exam date and time: 09/10/2024 1:39 PM Age: 44 years old Clinical indication: Screening examination. Interval benign left breast biopsy. TECHNIQUE: Imaging protocol: Bilateral Screening tomosynthesis and 2D mammography including computer-aided detection (CAD) when performed. COMPARISON: 1. MG MM DIG MAMM BI DX W/CAD 07/06/2023 8:19 AM 2. MG MM DIG SCREENING MAMM BI W/CAD 03/31/2022 9:19 AM 3. MG MM DIG SCREENING MAMM BI W/CAD 03/19/2020 2:00 PM 4. MG DIG MAMM-DX UNI-LT 02/08/2019 4:20 PM FINDINGS: MAMMOGRAPHY: Breast composition: The breasts are heterogeneously dense, which may obscure small masses. Mass: New oval 1.0 cm mass in the right inner lower quadrant, 4-7 cm from the nipple, CC image [id number] frame 28 and MLO image 1372 frame 44. The mass in the left upper outer quadrant posteriorly has resolved. Architectural distortion: None. Calcifications: No suspicious calcifications. Asymmetric density: None. Skin thickening: None. Axillary adenopathy: None. IMPRESSION: Patient will be recalled for right sonography for further evaluation of a mass. ASSESSMENT: BI-RADS Category 0: Incomplete: Need Additional Imaging Evaluation.
== END 2024-09-10 23:59 | disposition home or self-care (01) ==
LOC: RAD 13:32
PROVIDERS: PCP Nurse Practitioner Family; Visit Provider Obstetrics & Gynecology
DX: Z12.31 Encounter for screening mammogram for malignant neoplasm of breast (principal)
CPT/HCPCS: 77063; 77067

== ENCOUNTER 2024-09-13 10:11 | Outpatient (CLI) | payer OTHER, SELFPAY ==
--- NOTE | 2024-09-13 10:12 | US_ITS ---
PROCEDURE INFORMATION: Exam: US Right Breast, Complete Exam date and time: 09/13/2024 10:34 AM Age: 44 years old Clinical indication: Patient recalled for further evaluation of a right breast mass TECHNIQUE: Imaging protocol: Complete ultrasound of all four quadrants of the right breast and the retroareolar regions, including ultrasound of the axilla when performed. COMPARISON: MG MM DIG SCREENING MAMM BI W/CAD 09/10/2024 1:39 PM FINDINGS: ULTRASOUND: Breast ultrasound findings: Sonographic images of the right breast including the retroareolar region, all 4 quadrants and the axilla demonstrates the followin.3 cm cyst in the 3 o'clock axis 2 cm from the nipple most closely correlating with the mass on mammography. Hypoechoic mass in the 2 o'clock axis 2 cm from the nipple measures 2.2 x 0.1 x 0.3 cm in dimension likely reflecting a debris-filled cyst. 0.5 cm right 10 o'clock axis cyst 2 cm from the nipple. 0.6 cm cyst in the 11 o'clock periareolar region. Hypoechoic mass in the right 12 o'clock axis 2 cm from the nipple measures 0.4 x 0.3 x 0.4 cm.. No architectural distortion or acoustical shadowing. No skin thickening or axillary adenopathy. IMPRESSION: Mass on screening mammography corresponds to a benign cyst on sonography. Two additional subcentimeter hypoechoic masses in the right breast are probably benign. A six-month follow-up targeted right breast ultrasound is recommended to ensure stability over time ASSESSMENT: BI-RADS Category 3: Probably benign.
== END 2024-09-13 23:59 | disposition home or self-care (01) ==
LOC: RAD 10:12
PROVIDERS: PCP Nurse Practitioner Family; Visit Provider Obstetrics & Gynecology
DX: N63.15 Unspecified lump in the right breast, overlapping quadrants (principal)
CPT/HCPCS: 76641

== ENCOUNTER 2025-03-11 07:51 | Outpatient (CLI) | payer OTHER, SELFPAY ==
--- OUTSIDE RECORDS SUMMARY | 2025-03-11 07:54 | XMS_ITS | Clinical Summary ---
Author Organization [facility] Address [address] [facility] [address] [place] [address] Care Team Providers Care Real Estate Leasing Manager Name Role Phone Unavailable Primary Care Provider Unavailabl e Social History Tobacco Use Types Packs/Day Years Used Date Smoking Tobacco: Never Assessed Comments Unknown Sex and Gender Information Value Date Recorded Sex Assigned at Not on file Legal Sex Female 10:24 AM EDT Gender Identity Not on file Sexual Orientation Not on file Plan of Treatment Health Maintenance Due Date Last Done Comments HIV Screening 1980 Hepatitis C Screening 1980 MMR Vaccines (1 of 1 - Stand josselin series) 1981 Varicella Vaccines (1 of 2 - 13+ 2-dose series) 1993 Hepatitis B Screening 1998 DTaP/Tdap/Td Vaccines (1 - Tdap) 1999 Hepatitis B Vaccines (1 of 3 - 19+ 3-dose series) 1999 Pap Smear 2001 Cervical Cancer Screening 2010 HPV/Cotest 2010 Mammogram 2020 COVID-19 Vaccine (1 - 2023-2 5 season) 2024 Depression Risk Screening 07/31/2024 SDOH Screening 07/31/2024 Influenza Vaccine (#1) 2025 Zoster Vaccines (1 of 2) 2030 HIB Vaccines Aged Out No longer eligi ble based on patient's age to complete this topic HPV Vaccines Aged Out No longer eligi ble based on patient's age to complete this topic Hepatitis A Vaccines Aged Out No long er eligible based on patient's age to complete this topic IPV Vaccines Aged Out No longer eligi ble based on patient's age to complete this topic Meningococcal B Vaccine Aged Out No l onger eligible based on patient's age to complete this topic Meningococcal Vaccine Aged Out No yoly bhaskar eligible based on patient's age to complete this topic Pneumococcal Vaccine Aged Out No long er eligible based on patient's age to complete this topic Rotavirus Vaccines Aged Out No longer eligible based on patient's age to complete this topic Insurance
--- OUTSIDE RECORDS SUMMARY | 2025-03-11 07:54 | XMS_ITS | Encounter Summary ---
Author Organization [facility] Address [address] [place] [address] Care Team Providers Care Glove Printer Name Role Phone Tawny Merida DO Primary Care Provider [phone] Encounter Details Date Type Department Care Team (Late st Contact Info) Description 12/23/2022 Ophth Exam [facility] [address] [place] [address] Power Gray MD [address] [address] Social History Tobacco Use Types Packs/Day Years Used Date Smoking Tobacco: Every Day Alcohol Use Standard Drinks/Week Comments Yes 0 (1 standard drink = 0.6 oz pur e alcohol) Alcoholic Drinks/day: Alcohol CAGE ASSESSMENT Answer Date Recorded Cage unable to access Not on file 12/23/2022 Maximum number of drinks you had on a given occasion in the last month? 2 drinks 12/23/2022 How many alcoholic Beverages do you typically drink in a week? 0 - 7 per week 12/23/2022 Have you ever felt you should CUT down on your d rinking? 0 12/23/2022 Have you been ANNOYED by peo ple criticizing your drinking? 0 12/23/2022 Have you felt GUILTY about your drinking? 0 12/23/2022 Have you had a drink first t eugenio in the morning (EYE-COMPLIANCE MONITOR) to steady your nerves or to get rid of a hangover? 0 12/23/2022 CAGE Questionnaire Score 0 023 Comments Unknown Sex and Gender Information Value Date Recorded Sex Assigned at Not on file Legal Sex Female 7:46 PM EDT Gender Identity Not on file Sexual Orientation Not on file documented as of this encounter Functional Status * Calculated C-SSRS Risk Score (Lifetime/Recent) Answer Date of Assessment Author No Risk Indicated 12/24/2022 8:00 AM EDT Lilli Fenton * Question Answer Date of Assessment Author 1. Wish to be (Past 1 Month) No 023 8:00 AM EDT Lilli Fenton 2. Non-Specific Active Suici ofe Thoughts (Past 1 Month) No 12/24/2022 8:00 AM EDT Lor Fenton sa 6. Suicidal Behavior (Lifetime) No 8:00 AM EDT Lilli Fenton documented as of this encounter Plan of Treatment Upcoming Encounters Date Type Department Care Team (Late st Contact Info) Description 09/26/2025 11:30 AM EST Appointment [facility] [address] [place] [address] 09/26/2025 1:30 PM EST Office Visit [place] [facility] [address] [place] [address] Jose Early MD [address] [place] [address] documented as of this encounter Visit Diagnoses Not on filedocumented in this encounter Care Teams Glove Printer Relationship Specialty Start Date End Date Tawny Merida DO [address] [place] [address] [address] [place] [address] PCP - General 12/23/22 documented as of this encounter
--- OUTSIDE RECORDS SUMMARY | 2025-03-11 07:54 | XMS_ITS | Encounter Summary ---
Author Organization Healthcare Address [address] [place] [address] Care Team Providers Care Hypoid Gear Tester Name Role Phone Tawny Merida DO Primary Care Provider +1 [phone] Encounter Details Date Type Department Care Team (Late st Contact Info) Description 12/28/2021 Orders Only External Location [address] [place] [address] Chanel Arteaga MD [address] [phone] Social History Tobacco Use Types Packs/Day Years Used Date Smoking Tobacco: Every Day Alcohol Use Standard Drinks/Week Comments Yes 0 (1 standard drink = 0.6 oz pur e alcohol) Alcoholic Drinks/day: Alcohol Comments Unknown Sex and Gender Information Value Date Recorded Sex Assigned at Not on file Legal Sex Female 7:46 PM EDT Gender Identity Not on file Sexual Orientation Not on file documented as of this encounter Plan of Treatment Upcoming Encounters Date Type Department Care Team (Late st Contact Info) Description 09/26/2025 11:30 AM EST Appointment [facility] S Radiology [address], [address]st [place] [address] 09/26/2025 1:30 PM EST Office [facility] [place] [facility] [address], [address] [place] [address] Jose Early MD [address] [place] [address] documented as of this encounter Procedures Procedure Name Priority Date/Time Associated Diagnosis Comments MR HEAD W AND WO IV CONTRAST 12/28/2021 4:35 PM EDT documented in this encounter Results * MR Head w and wo IV Contrast (12/28/2021 4:35 PM EDT) Anatomical Region Laterality Modality Head Magnetic Resonan ce 12/28/2021 4:35 PM EDT us Chanel Arteaga MD IMG MRI PROCEDURES Final Resu lt documented in this encounter Visit Diagnoses Not on filedocumented in this encounter Care Teams Hypoid Gear Tester Relationship Specialty Start Date End Date Tawny Merida DO [address] [place] [address] [address] [place] [address] PCP - General 12/23/22 documented as of this encounter
--- OUTSIDE RECORDS SUMMARY | 2025-03-11 07:54 | XMS_ITS | Encounter Summary ---
Author Organization Healthcare Address [address] [place] [address] Care Team Providers Care Hand Stripper Name Role Phone Tawny Merida DO Primary Care Provider [phone] [phone] Encounter Details Date Type Department Care Team (Late st Contact Info) Description 10/20/2020 Orders Only External Location [address] [place] [address] Chanel Arteaga MD [address] [phone] Social History Tobacco Use Types Packs/Day Years [...] S Radiology [address], [address] [place] [address] 09/26/2025 1:30 PM EST Office [facility] [place] [facility] [address], [address] [place] [address] Jose Early MD [address] [place] [address] documented as of this encounter Procedures Procedure Name Priority Date/Time Associated Diagnosis Comments MR HEAD W AND WO IV CONTRAST 10/20/2020 4:21 PM EDT documented in this encounter Results * MR Head w and wo IV Contrast (10/20/2020 4:21 PM EDT) Anatomical Region Laterality Modality Head Magnetic Resonan ce 10/20/2020 4:21 PM EDT us Chanel Arteaga MD IMG MRI PROCEDURES Final Resu lt documented in this encounter Visit Diagnoses Not on filedocumented in this encounter Care Teams Hand Stripper Relationship Specialty Start Date End Date Tawny Merida DO [address] [place] [address] [address] [place] [address] PCP - General 12/23/22 documented as of this encounter
--- OUTSIDE RECORDS SUMMARY | 2025-03-11 07:54 | XMS_ITS | Encounter Summary ---
Author Organization [facility] Address [address] [place] [address] Care Team Providers Care State Trooper Name Role Phone Cheko Ofelia ADRIANNE Primary Care Provider [phone] Encounter Details Date Type Department Care Team (Late st Contact Info) Description 12/27/2024 Telephone [facility] END[facility]CR[facility]Y [address] [facility] 100 [place] [address] Lester Santoro MD 7778 [facility] [address] [place] [address] Social History Tobacco Use Types Packs/Day Years Used Date Smoking Tobacco: Never Passive Smoke Exposure: Never Smokeless Tobacco: Never Alcohol Use Standard Drinks/Week Comments Never 0 (1 standard drink = 0.6 oz pur e alcohol) Abuse Screen Answer Date Recorded Unsafe at Home or Work/School Not on file Feels Threatened by Someone? Not on file 05/2023 Does Anyone Keep You from Co ntacting Others or Doint Things Outside the Home? Not on file 05/10/2023 Physical Sign of Abuse Present Not on file 1 Housing Stability Answer Date Recorded Current Living Arrangements Not on file 04/30 Potentially Unsafe Housing Conditions Not on graham e 05/10/2023 Family and Community Support Answer Issa e Recorded Help with Day-to-Day Activities Not on file 05/10/2023 Lonely or Isolated Not on file 05/10/2023 Employment Answer Date Recorded Do you want help finding or keeping work or a kell b? Not on file 05/10/2023 Disabilities Answer Date Recorded Concentrating, Remembering, or Making Decisions Difficulty Not on file 05/10/2023 Doing Errands Independently Difficulty Not on fi le 05/10/2023 Education Answer Date Recorded Help with school or training? Not on file Preferred Language Not on file 05/10/2023 Comments Unknown Sex and Gender Information Value Date Recorded Sex Assigned at Not on file Legal Sex Female 1:58 PM EDT Gender Identity Not on file Sexual Orientation Not on file documented as of this encounter Miscellaneous Notes * Telephone Encounter - Sylvia Vicente MA - 12/27/2024 3:20 PM EDT PA submitted via CMM. * Telephone Encounter - Dania Joseph - 12/27/2024 2:32 PM EDT PATIENT IS CALLING STATING HER INSURANCE IS REQUIRING PRIOR AUTH FOR TIROSINT PRESCRIPTION. SHE STATES PHARMACY SEND US THE REQUEST. PHARMACY IS [facility]. documented in this encounter Plan of Treatment Upcoming Encounters Date Type Department Care Team (Late st Contact Info) Description 04/11/2025 9:15 AM EDT Office Visit [facility] ENDOCR[facility]OLOGY [address] [facility] [address] [place] [phone] Lester Santoro MD 1775 [facility] [address] [place] [address] documented as of this encounter Visit Diagnoses Not on filedocumented in this encounter Care Teams State Trooper Relationship Specialty Start Date End Date Ofelia Still APRN [address] [place] [address] [place] [address] PCP - General Nurse Practitioner 04/26/23 documented as of this encounter
--- OUTSIDE RECORDS SUMMARY | 2025-03-11 07:54 | XMS_ITS | Encounter Summary ---
Author Organization Healthcare Address [address] [place] [address] Care Team Providers Care Public Administration Professor Name Role Phone Tawny Merida DO Primary Care Provider [phone] Encounter Details Date Type Department Care Team (Late st Contact Info) Description 12/28/2021 Orders Only External Location [address] [place] [address] Chanel Arteaga MD [address] [phone] Social History Tobacco Use Types Packs/Day Years [...] S Radiology [address], 1st [place] [address] 09/26/2025 1:30 PM EST Office Visit [place] [facility] [address], [address] [place] [address] Jose Early MD [address] [place] [address] documented as of this encounter Procedures Procedure Name Priority Date/Time Associated Diagnosis Comments MR OUTSIDE IMAGES 12/28/2021 4:35 PM EDT documented in this encounter Results * MR transfer of outside films (12/28/2021 4:35 PM EDT) Anatomical Region Laterality Modality Magnetic Resonan ce 12/28/2021 4:35 PM EDT us Chanel Arteaga MD IMG MRI PROCEDURES Final Resu lt documented in this encounter Visit Diagnoses Not on filedocumented in this encounter Care Teams Public Administration Professor Relationship Specialty Start Date End Date Tawny Merida DO [address] [place] [address] [address] [id number] PCP - General 12/23/22 documented as of this encounter
--- OUTSIDE RECORDS SUMMARY | 2025-03-11 07:54 | XMS_ITS | Clinical Summary ---
Author Organization [facility] Address [address] [place] [address] Care Team Providers Care Arson Investigator Name Role Phone Tawny Merida DO Primary Care Provider [phone] [phone] Allergies No known active allergies Medications levothyroxine (Synthroid, Levoxyl) 100 MCG tabletIndication s:Hypothyroidism , unspecified type Take 1 tablet (100 mcg) by mouth 1 (one) time each day. 100 mcg daily, except on Monday 0.5 tablet 30 tablet 11 3 Active Additional Information Patient taking differently: 75 mcgOral Daily, 100 mcg daily, except on Monday 0.5 tablet, Reported on 09/27/2024 Synthroid 75 MCG tablet Take 1 tablet (75 mcg) by mouth 1 (one) time each day. 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 Overview (12/23/2022): CT/MRI findings as above Pt reports pituitary mass found incidentally on MRI in 2020 during tinnitus w/u with ENT Surgical plan pending Ophtho following Maintain SBP less than 160 Normonatremia Continue hydrocortisone Keep HOB elevated Hold all AP/AC/DVT ppx Neuro examinations per ICU protocol Will continue ongoing stroke education PT/OT as appropriate Hypothyroidism 12/23/2022 Overview (12/23/2022): Resume home medications when appropriate HTN (hypertension) 12/23/2022 Overview (12/23/2022): SBP goal <160 PRN hydralazine and labetalol Cardene as necessary Consider arterial line monitoring Resume home medications as appropriate Immunizations Immunization Administration Dates Next Due Tdap 01/28/2020 Family History Medical History Relation Name Comments Cancer Father Heart disease Father Stroke Father Hyperlipidemia Maternal Grandfather Hypertension Maternal Grandfather Arthritis Mother Hyperlipidemia Mother Relation Name Status Comments Father Maternal Grandfather Mother Social History Tobacco Use Types Packs/Day Years Used Date Smoking Tobacco: Former Cigarettes Q uit: 12/23/2022 Smokeless Tobacco: Never Tobacco Cessation:Counseling Given: Not Answered Comments:1-2 cigarettes a week Alcohol Use Standard Drinks/Week Comments Not Currently 0 (1 standard drink = 0.6 oz pur e alcohol) PHQ-2 Answer Date Recorded Patient Health Questionnaire-2 Score 0 01/30/2023 CAGE ASSESSMENT Answer Date Recorded Cage unable [...] drink first t eugenio in the morning (EYE-CAREER DEVELOPMENT COUNSELOR) to steady your nerves or to get rid of a hangover? 0 12/23/2022 CAGE Questionnaire Score 0 023 PHQ-2A Answer Date Recorded Patient Health Questionnaire-2 Score 0 01/30/2023 Comments Unknown Sex and Gender Information Value Date Recorded Sex Assigned at Not on file Legal Sex Female 7:46 PM EDT Gender Identity Not on file Sexual Orientation Not on file Last Filed Vital Signs Vital Sign Reading Time Taken Comments Blood Pressure 125/84 09/27/2024 1:17 PM EST Pulse 79 09/27/2024 1:17 PM EST Temperature 36.9 C (98.4 F) 12/26/2022 7:00 AM EDT Respiratory Rate 18 09/22/2023 12:28 PM EST Oxygen Saturation 99% 09/27/2024 1:17 PM EST Inhaled Oxygen Concentration - - Weight 89.1 kg (196 lb 6.9 oz) 09/27/2024 1:17 P M EST Height 175.3 cm (5' 9 ) 11/16/2023 3:30 PM EDT Body Mass Index 29.01 11/16/2023 3:30 PM EDT Plan of Treatment Upcoming Encounters Date Type Department Care Team (Late st Contact Info) Description 09/26/2025 11:30 AM EST Appointment [facility] S Radiology [address], [address]st [place] [address] 09/26/2025 1:30 PM EST Office Visit [place] [facility] [address], [address] [place] [address] Jose Early MD [address] [place] [address] Health Maintenance Due Date Last Done Comments [facility]-HIV Screening 1980 [facility]-Hepatitis C Screening 1980 [facility]-Infant/Child/Adol SDOH Screenings 1980 [id number] Vaccine (#1) 1985 [facility]-Varicella Vaccines (1 of 2 - 13+ 2-dose series) 1993 [facility]- SDOH Screenings 1998 [facility]-Adult SDOH Screenings 1998 [facility]-Hepatitis B Vaccines (1 of 3 - 19+ 3-dose series) 1999 [facility]-Pap Smear 2001 HPV Vaccines (1 - 3-dose SCDM series) 2007 [facility]-Cervical Cancer Screening 2010 [facility]-HPV/Cotest 2010 [facility]-Depression Screening 01/31/2024 01/30/2023 [facility]-Influenza Vaccine (#1) 2025 [facility]-DTaP,Tdap,and Td Vaccines (2 - Td or Tdap) 01/27/2030 01/28/2020 [facility]-Zoster Vaccines (1 of 2) 2030 [facility]-Obesity Intervention Completed 025, 11/16/2023, 11/16/2023, Additional history exists [facility]-HIB Vaccines Aged Out No longer e ligible based on patient's age to complete this topic [facility]-Hepatitis A Vaccines Aged Out No longer eligible based on patient's age to complete this topic [facility]-IPV Vaccines Aged Out No longer e ligible based on patient's age to complete this topic [facility]-Pneumococcal Vaccine: Pediatrics (0 to 5 Years) and At-Risk Patients (6 to 49 Years) Aged Out No longer eligible based on patient's age to complete this topic [facility]-Rotavirus Vaccines Aged Out No lo nger eligible based on patient's age to complete this topic Insurance [address] [place] [address] [facility] Care Teams Arson Investigator Relationship Specialty Start Date End Date Tawny Merida DO [address] [place] [address] [address] [place] [address] PCP - General 12/23/22
--- OUTSIDE RECORDS SUMMARY | 2025-03-11 07:54 | XMS_ITS | Encounter Summary ---
Author Organization Healthcare Address [address] [place] [address] Care Team Providers Care Steam Fitter Supervisor Maintenance Name Role Phone Tawny Merida DO Primary Care Provider [phone] [phone] Encounter Details Date Type Department Care Team (Late st Contact Info) Description 10/20/2020 Orders Only External Location [address] [place] [address] Chanel Arteaga MD [address] [phone] Social History Tobacco Use Types Packs/Day Years [...] S Radiology [address], [address]st [place] [address] 09/26/2025 1:30 PM EST Office Visit [place] [facility] [address], [address] [place] [address] Jose Early MD [address] [place] [address] documented as of this encounter Procedures Procedure Name Priority Date/Time Associated Diagnosis Comments MR OUTSIDE IMAGES 10/20/2020 4:21 PM EDT documented in this encounter Results * MR transfer of outside films (10/20/2020 4:21 PM EDT) Anatomical Region Laterality Modality Magnetic Resonan ce 10/20/2020 4:21 PM EDT us Chanel Arteaga MD IMG MRI PROCEDURES Final Resu lt documented in this encounter Visit Diagnoses Not on filedocumented in this encounter Care Teams Steam Fitter Supervisor Maintenance Relationship Specialty Start Date End Date Tawny Merida DO [address] [place] [address] [address] [id number] PCP - General 12/23/22 documented as of this encounter
--- OUTSIDE RECORDS SUMMARY | 2025-03-11 07:54 | XMS_ITS | Clinical Summary ---
Author Organization [facility] Address [address] [place] [address] Care Team Providers Care Picture Framer Name Role Phone Ofelia Still ADRIANNE Primary Care Provider [phone] Allergies No known active allergies Medications Tirosint 75 MCG capsule TAKE ONE CAPSULE BY MOUTH EVERY DAY 30 capsule 5 10/21/2024 Active Active Problems Problem Noted Date Diagnosed Date Pituitary adenoma 04/26/2023 Overview (04/26/2023): Diagnosed incidentally in 2020 but had spontaneous apoplexy in november 2022. Did not require surgery Igf1 level was high at time of apoplexy. Other pituitary function was normal Assessment & Plan (11/20/2023 4:54 PM EDT): Pituitary function still appears normal but needs biochemical re- assessment. Will order Assessment & Plan (04/26/2023 5:40 PM EDT): She appears to have normal pituitary function following apoplexy of a pituitary adenoma. 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 Had to go on thyroid medication after the surgery. Started with levothyroxine and then switched to thyroid extract. She felt better with that. When she was in the hospital with her pituitary, she was switch from armour 90 to synthroid 150.. this was too much, then synthroid 125 then synthroid 100, now synthroid 88. ( She had symptoms of hyperthyhroidism ) Assessment & Plan (04/12/2024 10:04 AM EDT): Clinically and chemically euthyroid on this dose. Rec: no changes Assessment & Plan (11/20/2023 4:53 PM EDT): Worse/ unstable I think there is just too much t3 in armcamilo and she ought to go back to T4. We can add cytomel if needed. I gave her samples to take 50 mcg per day. She will have labs in a month. She will be hypo on that but I would rather slowly increase than have her be on too much Assessment & Plan (04/26/2023 5:39 PM EDT): The biggest issue remains the consequence of iatrogenic hyperthyroidism She was slightly hyper on 90 mg per day of dte and the doses of levothyroxine to which she was switched have worsened that. I propose she take no thyroidmedication for several days and then take thyorid 60, rechecking in 4 weeks Encounters Date Type Department Care Team Description 12/30/2024 Telephone [facility] ENDOCRINOLOGY [address] [place] [address] Lamonte Castillo MD Med Refill 12/27/2024 Prior Authorization [facility] ENDOCR[facility]OLOGY [address] [place] [address] Lester Santoro MD 12/27/2024 Telephone [facility] ENDOCR[facility]OLOGY [address] [place] [address] Lester Santoro MD from Last 3 Months Family History Medical History Relation Name Comments Cancer Father Heart disease Mother Relation Name Status Comments Father Mother Alive Social History Tobacco Use Types Packs/Day Years Used Date Smoking Tobacco: Never Passive Smoke Exposure: Never Smokeless Tobacco: Never Tobacco Cessation:Counseling Given: Not Answered Alcohol Use Standard Drinks/Week Comments Never 0 [...] Sign Reading Time Taken Comments Blood Pressure 118/70 04/12/2024 9:30 AM EDT Pulse 70 04/12/2024 9:30 AM EDT Temperature - - Respiratory Rate - - Oxygen Saturation 99% 04/12/2024 9:30 AM EDT Inhaled Oxygen Concentration - - Weight 87.5 kg (193 lb) 04/12/2024 9:30 AM EDT Height 175.3 cm (5' 9 ) 04/12/2024 9:30 AM EDT Body Mass Index 28.5 04/12/2024 9:30 AM EDT Plan of Treatment Upcoming Encounters Date Type Department Care Team (Late st Contact Info) Description 04/11/2025 9:15 AM EDT Office Visit [facility] ENDOCRINOLOGY [address] [address] Lester Santoro MD [address] [place] [address] Health Maintenance Due Date Last Done Comments Annual Gynecologic Pelvic an d Breast Exam 1980 PAP SMEAR 2001 MAMMOGRAM 2020 ANNUAL PHYSICAL 04/17/2023 HEPATITIS C SCREENING 04/17/2023 COVID-19 Vaccine (1 - 2023-2 5 season) 2024 INFLUENZA VACCINE 04/30/2025 TDAP/TD VACCINES (2 - Td or Tdap) 01/27/2030 020 Pneumococcal Vaccine 0-49 Aged Out No longer eligible based on patient's age to complete this topic [place] [address] [place] [address] Care Teams Picture Framer Relationship Specialty Start Date End Date Ofelia Still APRN [address] [place] [address] PCP - General Nurse Practitioner 04/26/23
[2025-03-11 08:29] LABS: Hematocrit 38.4 % (37.0-47.0); Hemoglobin 12.8 g/dL (12.2-16.2); Immature Granulocytes % 0.2 %; Mean Corpuscular HGB Conc 33.3 g/dL (31.8-35.4); Mean Corpuscular Hemoglobin 31.3 pg (27.0-31.2); Mean Corpuscular Volume 93.9 fl (81-99); Nucleated Red Blood Cells % 0 %; Platelet Count 280 K/mm3 (142-424); Red Blood Count 4.09 M/mm3 (4.20-5.40); Red Cell Distribution Width-SD 41.6 fL; White Blood Count 5.2 K/mm3 (4.8-10.8)
[2025-03-11 09:14] LABS: Alanine Aminotransferase 21 U/L (12-78); Albumin Level 4.3 g/dl (3.5-5.0); Albumin/Globulin Ratio 2.0 (1.1-1.8); Alkaline Phosphatase 51 U/L (38-126); Anion Gap 10.3 mEq/L (5-15); Aspartate Amino Transferase 27 U/L (14-36); Bilirubin,Total 1.4 mg/dl (0.2-1.3); Blood Urea Nitrogen 11 mg/dl (7-17); Calcium 8.6 mg/dl (8.4-10.2); Carbon Dioxide 27 mmol/L (22.0-30.0); Chloride 103 mmol/L (98-107); Cholesterol 190 mg/dl (140-200); Creatinine,Serum 0.70 mg/dl (0.52-1.04); Estimated Glomerular Filt Rate 91 ml/min (>60); GFR (African American) 110 ML/MIN (>60); Globulin 2.2 g/dL (1.3-3.2); Glucose 87 mg/dl (74-100); HDL Cholesterol 45 mg/dl (40-60); Potassium 4.3 mmoL/L (3.5-5.1); Sodium 136 mmol/L (136-145); Total Protein,Serum 6.5 g/dl (6.3-8.2); Triglycerides 90 mg/dl (30-150)
[2025-03-11 09:29] LABS: 25-OH Vitamin D, Total 40.2 ng/mL (30-100)
[2025-03-11 09:32] LABS: Free T4 (Free Thyroxine) 1.18 ng/dl (0.78-2.19)
[2025-03-11 09:45] LABS: Thyroid Stimulating Hormone 3.64 uIU/mL (0.465-4.68)
[2025-03-12 08:14] LABS: FSH 7.9 mIU/mL (.); LH 8.2 mIU/mL (.); Testosterone,Total 11 ng/dL (4-50); Triiodothyronine (T3) Free 2.8 pg/mL (2.0-4.4)
== END 2025-03-11 23:59 | disposition home or self-care (01) ==
LOC: LAB 07:53
PROVIDERS: Obstetrics & Gynecology; PCP Nurse Practitioner Family; Visit Provider Nurse Practitioner Family
DX: N95.1 Menopausal and female climacteric states (principal)
CPT/HCPCS: 36415; 80053; 80061; 82306; 82533; 82670; 83001; 83002; 84144; 84146; 84403; 84439; 84443; 84481; 85025; 86376

== ENCOUNTER 2025-03-19 14:16 | Outpatient (CLI) | payer OTHER, SELFPAY ==
--- NOTE | 2025-03-19 14:00 | US_ITS ---
PROCEDURE INFORMATION: Exam: US Right Breast, Complete, Screening US Left Breast, Complete Exam date and time: 03/19/2025 2:09 PM Age: 44 years old Clinical indication: Follow-up prior for probably benign right breast masses recently biopsy benign left breast mass TECHNIQUE: Imaging protocol: Complete ultrasound of all four quadrants of the right breast and the retroareolar regions, including ultrasound of the axilla when performed. Complete ultrasound of all four quadrants of the left breast and the retroareolar regions, including ultrasound of the axilla when performed. COMPARISON: US BREAST RT COMPLETE 09/13/2024 10:34 AM FINDINGS: ULTRASOUND: Breast ultrasound findings: Right breast ultrasound: Stable hypoechoic oval mass at 3 o'clock 3 cm from nipple measuring 0.3 x 0.3 cm. Benign simple cyst at 3 o'clock measuring 1.9 cm. Benign simple cysts at 10 o'clock measuring 0.6 cm. Benign simple cysts at 11 o'clock measuring 0.7 cm. The previously seen mass or complicated cyst at 12 o'clock is not included on today's imaging and may have resolved. No abnormal lymph nodes in the axilla Left breast ultrasound: Parallel circumscribed hypoechoic oval mass or complicated cyst at 4 o'clock 3 cm from nipple measuring 1.4 x 1.1 x 0.6 cm, unchanged since 01/04/2024. Probable complicated cysts at 10 o'clock 2 cm from the nipple measuring 0.6 x 0.8 cm. This is also unchanged since 01/21. Additional scattered benign simple and complicated cysts. No abnormal lymph nodes in the axilla. IMPRESSION: 1. Stable right breast mass at 3 o'clock, unchanged since 09/13/2024 and probably benign. The 2nd previously noted probably benign mass at 12 o'clock was not visualized on today's exam. Recommend six-month follow-up bilateral diagnostic mammogram and right breast ultrasound to ensure stability. 2. Stable left breast mass at 4 o'clock, unchanged since 07/06/2023 and probably benign. Recommend six-month follow-up left breast ultrasound to ensure stability. ASSESSMENT: BI-RADS Category 3: Probably benign.
--- OUTSIDE RECORDS SUMMARY | 2025-03-19 14:19 | XMS_ITS | Encounter Summary ---
Author Organization Healthcare Address [address] [place] [address] Care Team Providers Care X Ray Electronics Wireman Name Role Phone Tawny Merida DO Primary Care Provider [phone] Encounter Details Date Type Department Care Team (Late st Contact Info) Description 10/20/2020 Orders Only External Location [address] [place] [address] Chanel Arteaga MD [address] [phone] Social History Tobacco Use Types Packs/Day Years [...] S Radiology [address], [address]st [place] [address] 09/26/2025 1:30 PM EST Office [facility] [place] [facility] [address] [place] [address] Jose Early MD [address] [place] [address] documented as of this encounter Procedures Procedure [...] on filedocumented in this encounter Care Teams X Ray Electronics Wireman Relationship Specialty Start Date End Date Tawny Merida DO [address] [place] [address] [address] [id number] PCP - General 12/23/22 documented as of this encounter
--- OUTSIDE RECORDS SUMMARY | 2025-03-19 14:19 | XMS_ITS | Clinical Summary ---
Author Organization [facility] Address [address] [place] [address] Care Team Providers Care Dog Control Officer Name Role Phone Tawny Merida DO Primary Care Provider [phone] Allergies No known active allergies Medications levothyroxine [...] amLODIPine (Norvasc) 5 MG tablet 4 Active CELLAR HAND Thyroid 15 MG tablet 4 Active CELLAR HAND Thyroid 60 MG tablet 3 Active Hospital, [...] drink first t eugenio in the morning (EYE-COLLECTIONS CLERK) to steady your nerves or to get [...] EST Appointment [facility] Radiology [address] [place] [address] 09/26/2025 1:30 PM EST [facility] [place] [facility] [address], [address] [place] [address] Jose Early MD [address] [place] [address] Health Maintenance Due Date Last Done Comments [facility]-HIV Screening 1980 [facility]-Hepatitis C Screening 1980 [facility]-Infant/Child/Adol SDOH Screenings 1980 [id number] Vaccine (#1) 1985 [facility]-Varicella Vaccines (1 of [...] age to complete this topic Insurance [address] [place] [address] [facility] Care Teams Dog Control Officer Relationship Specialty Start Date End Date Tawny Merida DO [address] [place] [address] [address] [place] [address] PCP - General 12/23/22
--- OUTSIDE RECORDS SUMMARY | 2025-03-19 14:19 | XMS_ITS | Encounter Summary ---
Author Organization [facility] Address [address] 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 [place] [address] 09/26/2025 1:30 PM EST Office Visit [place] [facility] [address] [place] [address] Jose Early MD [address] [place] [address] documented as of this encounter Visit Diagnoses Not on filedocumented in this encounter Care Teams Professor Of Environmental Studies Relationship Specialty Start Date End Date Tawny Merida DO [address] [place] [address] [address] [place] [address] PCP - General 12/23/22 documented as of this encounter
--- OUTSIDE RECORDS SUMMARY | 2025-03-19 14:19 | XMS_ITS | Encounter Summary ---
Author Organization [facility] Address [address] [place] [address] Care Team Providers Care Negative Cutter Name Role Phone Tawny Merida DO Primary Care Provider [phone] Encounter Details Date Type Department Care Team (Late st Contact Info) Description 10/20/2020 Orders Only External Location [address] [place] [address] Chanel Arteaga MD [address] [phone] Social History Tobacco Use Types Packs/Day Years [...] S Radiology [address], [address] [place] [address] 09/26/2025 1:30 PM EST Office Visit [place] [facility] [address] [place] [address] Jose Early MD [address] [place] [address] documented as of this encounter Procedures Procedure [...] on filedocumented in this encounter Care Teams Negative Cutter Relationship Specialty Start Date End Date Tawny Merida DO [address] [place] [address] [address] [place] [address] PCP - General 12/23/22 documented as of this encounter
--- OUTSIDE RECORDS SUMMARY | 2025-03-19 14:19 | XMS_ITS | Clinical Summary ---
Author Organization [facility] Address [address] [place] [address] Care Team Providers Care Rn Peritoneal Dialysis Name Role Phone Ofelia Still ADRIANNE Primary Care Provider [phone] Allergies No known active allergies Medications Tirosint [...] Type Department Care Team Description 12/30/2024 Telephone [facility] [address] [place] [address] Lamonte Castillo MD Med Refill 12/27/2024 Prior Authorization [facility] [address] [place] [address] Lester Santoro MD 12/27/2024 Telephone [facility] [address] [place] [address] Lester Santoro MD from Last 3 Months [...] Description 04/11/2025 9:15 AM EDT Office Visit [facility] [address] [address] Lester Santoro MD [address] [place] [address] Health Maintenance Due Date Last Done Comments [...] patient's age to complete this topic [place] [address] [place] [address] Care Teams Rn Peritoneal Dialysis Relationship Specialty Start Date End Date Ofelia Still APRN [address] [place] [address] PCP - General Nurse Practitioner 04/26/23
--- OUTSIDE RECORDS SUMMARY | 2025-03-19 14:19 | XMS_ITS | Encounter Summary ---
Author Organization [facility] Address [address] [place] [address] Care Team Providers Care Lap Polisher Name Role Phone Tawny Merida DO Primary Care Provider [phone] Encounter Details Date Type Department Care Team (Late st Contact Info) Description 12/28/2021 Orders Only External Location [address] [place] [address] Chanel Arteaga MD [address] [phone] Social History Tobacco Use Types Packs/Day Years [...] S Radiology [address] [place] [address] 09/26/2025 1:30 PM EST Office Visit [place] [facility] [address] [place] [address] Jose Early MD [address] [place] [address] documented as of this encounter Procedures Procedure [...] on filedocumented in this encounter Care Teams Lap Polisher Relationship Specialty Start Date End Date Tawny Merida DO [address] [place] [address] [address] [place] [address] PCP - General 12/23/22 documented as of this encounter
--- OUTSIDE RECORDS SUMMARY | 2025-03-19 14:19 | XMS_ITS | Clinical Summary ---
Author Organization [facility] Address [address] [facility] [address] [place] [address] Care Team Providers Care Software Licensing Executive Name Role Phone Unavailable Primary Care Provider [...]
--- OUTSIDE RECORDS SUMMARY | 2025-03-19 14:19 | XMS_ITS | Encounter Summary ---
Author Organization [facility] Address [address] [place] [address] Care Team Providers Care Store Custodian Name Role Phone Tawny Merida DO Primary Care Provider [phone] Encounter Details Date Type Department Care Team (Late st Contact Info) Description 12/28/2021 Orders Only External Location [address] [place] [address] Chanel Arteaga MD [address] [phone] Social History Tobacco Use Types Packs/Day Years [...] S Radiology [address] [place] [address] 09/26/2025 1:30 PM EST Office Visit [place] [facility] [address] [place] [address] Jose Early MD [address] [place] [address] documented as of this encounter Procedures Procedure [...] on filedocumented in this encounter Care Teams Store Custodian Relationship Specialty Start Date End Date Tawny Merida DO [address] [place] [address] [address] [id number] PCP - General 12/23/22 documented as of this encounter
== END 2025-03-19 23:59 | disposition home or self-care (01) ==
LOC: RAD 14:16
PROVIDERS: PCP Nurse Practitioner Family; Visit Provider Obstetrics & Gynecology
DX: N63.15 Unspecified lump in the right breast, overlapping quadrants (principal); N63.23 Unspecified lump in the left breast, lower outer quadrant; R92.8 Other abnormal and inconclusive findings on diagnostic imaging of breast
CPT/HCPCS: 76641

== ENCOUNTER 2025-07-08 13:33 | Outpatient (CLI) | payer OTHER, SELFPAY | END 2025-07-08 23:59 | disposition home or self-care (01) | LOC: RAD 13:33 | PROVIDERS: PCP Nurse Practitioner Family; Visit Provider Physician Assistant | DX: D35.2 Benign neoplasm of pituitary gland (principal) ==